=== PATIENT | female | born 1945 | race Caucasian/White ===

== ENCOUNTER → 2017-11-02 15:21 | Outpatient (CLI) | payer MEDICARE, OTHER, SELFPAY ==
--- NOTE | 2017-11-02 15:51 | DI.MG.S_ITS ---
Patient Name: JOANNE SOARES date: 1945 Sex: F Attending Physician: Devin Indications: Date: 11/02/2017 15:41 At the request of: MARGARETTE CARDOSO Procedure: MM screening mammo BI BILATERAL DIGITAL SCREENING MAMMOGRAM 3D/2D WITH CAD: 11/02/2017 CLINICAL: Routine screening. Comparison is made to exams dated: 10/20/2016 mammogram, 09/27/2015 mammogram, and mammogram - [facility]. The tissue of both breasts is heterogeneously dense. This may lower the sensitivity of mammography. Current study was also evaluated with a Computer Aided Detection (CAD) system. There is possible architectural distortion in the left breast upper outer aspect middle depth. No other significant masses, calcifications, or other findings are seen in either breast. IMPRESSION: INCOMPLETE: NEEDS ADDITIONAL IMAGING EVALUATION The possible architectural distortion in the left breast is indeterminate. Additional views with possible ultrasound are recommended. This exam was interpreted at Station ID: [id number]. NOTE: For mammograms, a report in lay terms will be sent to the patient. Approximately 15% of breast malignancies will not be visualized mammographically. In the management of a palpable breast mass, a negative mammogram must not discourage biopsy of a clinically suspicious lesion. Electronically Signed By: Steve Pan M.D. ecl/:11/02/2017 20:53:43 copy to: MARGARETTE CARDOSO letter sent: Additional Imaging Needed ACR BI-RADS Category 0: Incomplete 3340F Continued Report - Page 2 of 2 Patient Name: JOANNE SOARES date: 1945 Sex: F Attending Physician: Devin Indications: Date: 11/02/2017 15:41 At the request of: MARGARETTE CARDOSO Procedure: MM screening mammo BI
== END ==
PROVIDERS: Family Provider Physician Assistant; Visit Provider Physician Assistant
DX: Z12.31 Encounter for screening mammogram for malignant neoplasm of breast (principal)
CPT/HCPCS: 77063; 77067

== ENCOUNTER → 2017-11-16 08:18 | Outpatient (CLI) | payer MEDICARE, OTHER, SELFPAY ==
--- NOTE | 2017-11-16 | DI.MG.S_ITS ---
UNILATERAL LEFT DIGITAL DIAGNOSTIC MAMMOGRAM 3D/2D WITH ADDITIONAL VIEWS: 11/16/2017 CLINICAL: Additional evaluation requested from prior study. Comparison is made to exams dated: 11/02/2017 mammogram, 10/20/2016 mammogram, and 09/27/2015 mammogram - [facility]. The tissue of the left breast is heterogeneously dense. This may lower the sensitivity of mammography. Questioned left breast finding resolves on further imaging. IMPRESSION: INCOMPLETE: NEEDS ADDITIONAL IMAGING EVALUATION Questioned left breast finding resolves on further imaging. Recommend ultrasound for confirmation. This exam was interpreted at Station ID: [id number]. NOTE: For mammograms, a report in lay terms will be sent to the patient. Approximately 15% of breast malignancies will not be visualized mammographically. In the management of a palpable breast mass, a negative mammogram must not discourage biopsy of a clinically suspicious lesion. Electronically Signed By: Glynn Melara M.D. cj/:11/17/2017 08:06:51 ACR BI-RADS Category 0: Incomplete 3340F
--- NOTE | 2017-11-16 | DI.US.S_ITS ---
ULTRASOUND OF LEFT BREAST: 11/16/2017 CLINICAL: Patient returns today to evaluate a focal asymmetry in the left breast. Comparison is made to exams dated: 11/16/2017 mammogram, 11/02/2017 mammogram, and 10/20/2016 mammogram - [facility]. Color flow ultrasound of the left breast was performed. [place]jo scale images of the real-time examination were reviewed. Prior mammographic finding is no longer seen left breast. IMPRESSION: NEGATIVE There is no sonographic evidence of malignancy. A 1 year screening mammogram is recommended. This exam was interpreted at Station ID: [id number]. Electronically Signed By: Glynn barraza/minerva:11/16/2017 13:08:12 letter sent: Normal Exam Ultrasound BI-RADS: 1 Negative
== END ==
PROVIDERS: Family Provider Physician Assistant; Visit Provider Physician Assistant
DX: R92.8 Other abnormal and inconclusive findings on diagnostic imaging of breast (principal)
CPT/HCPCS: 76642; 77065; G0279

== ENCOUNTER → 2018-12-03 11:39 | Outpatient (CLI) | payer MEDICARE, OTHER, SELFPAY ==
--- NOTE | 2018-12-03 | DI.MG.S_ITS ---
BILATERAL DIGITAL SCREENING MAMMOGRAM 3D/2D WITH CAD: 12/03/2018 CLINICAL: Routine screening. Comparison is made to exams dated: 11/16/2017 mammogram, 11/02/2017 mammogram, 10/20/2016 mammogram, 09/27/2015 mammogram, 12/29/2014 mammogram, and 10/05/2013 mammogram - [facility]. The tissue of both breasts is heterogeneously dense. This may lower the sensitivity of mammography. Current study was also evaluated with a Computer Aided Detection (CAD) system. There is a mole marker on the right breast. There are mole markers on the left breast. No significant masses, calcifications, or other findings are seen in either breast. There has been no significant interval change. IMPRESSION: NEGATIVE There is no mammographic evidence of malignancy. A 1 year screening mammogram is recommended. This exam was interpreted at Station ID: [id number]. NOTE: For mammograms, a report in lay terms will be sent to the patient. Approximately 15% of breast malignancies will not be visualized mammographically. In the management of a palpable breast mass, a negative mammogram must not discourage biopsy of a clinically suspicious lesion. Electronically Signed By: Steve mason/minerva:12/03/2018 13:34:55 letter sent: Normal Exam ACR BI-RADS Category 1: Negative 3341F
== END ==
PROVIDERS: Visit Provider Physician Assistant
DX: Z12.31 Encounter for screening mammogram for malignant neoplasm of breast (principal)
CPT/HCPCS: 77063; 77067

== ENCOUNTER → 2020-02-21 14:45 | Outpatient (ROUT) | payer MEDICARE, OTHER, SELFPAY ==
[2020-02-21 16:45] LABS: TSH w/ Reflex to FT4 5.21 uIU/mL (0.47-4.68)
[2020-02-21 17:18] LABS: Free T4, Direct Thyroxine 1.08 ng/dL (0.78-2.19)
== END ==
PROVIDERS: PCP Student in an Organized Health Care Education/Training Program; Visit Provider Student in an Organized Health Care Education/Training Program
DX: E03.9 Hypothyroidism, unspecified (principal)
CPT/HCPCS: 84439; 84443

== ENCOUNTER → 2020-05-01 12:33 | Outpatient (ROUT) | payer MEDICARE, OTHER, SELFPAY ==
[2020-05-01 13:14] LABS: Thyroid Stimulating Hormone 4.66 uIU/mL (0.47-4.68)
== END ==
PROVIDERS: PCP Student in an Organized Health Care Education/Training Program; Visit Provider Student in an Organized Health Care Education/Training Program
DX: E03.9 Hypothyroidism, unspecified (principal)
CPT/HCPCS: 84443

== ENCOUNTER → 2020-05-24 09:17 | Outpatient (CLI) | payer MEDICARE, OTHER, SELFPAY ==
[2020-05-24] MEDS: COVID-19 VACC #1, MRNA(MOD) 100 MCG/0.5 ML VIAL IM (09:21)
== END ==
PROVIDERS: PCP Student in an Organized Health Care Education/Training Program; Visit Provider Internal Medicine
DX: Z23 Encounter for immunization (principal)
CPT/HCPCS: 0011A; 91301

== ENCOUNTER → 2020-06-21 09:18 | Outpatient (CLI) | payer MEDICARE, OTHER, SELFPAY ==
[2020-06-21] MEDS: COVID-19 VACC #2, MRNA(MOD) 100 MCG/0.5 ML VIAL IM (09:21)
== END ==
PROVIDERS: PCP Student in an Organized Health Care Education/Training Program; Visit Provider Internal Medicine
DX: Z23 Encounter for immunization (principal)
CPT/HCPCS: 0012A; 91301

== ENCOUNTER → 2020-08-02 11:12 | Outpatient (CLI) | payer MEDICARE, OTHER, SELFPAY ==
--- NOTE | 2020-08-02 11:19 | DI.MG.S_ITS ---
BILATERAL DIGITAL SCREENING MAMMOGRAM 3D/2D WITH CAD: 08/02/2020 CLINICAL: Routine screening. Comparison is made to exams dated: 12/03/2018 mammogram, 11/02/2017 mammogram, and 10/20/2016 mammogram - [facility]. The tissue of both breasts is heterogeneously dense. This may lower the sensitivity of mammography. Current study was also evaluated with a Computer Aided Detection (CAD) system. No significant masses, calcifications, or other findings are seen in either breast. There has been no significant interval change. IMPRESSION: NEGATIVE There is no mammographic evidence of malignancy. A 1 year screening mammogram is recommended. This exam was interpreted at Station ID: [id number]. NOTE: For mammograms, a report in lay terms will be sent to the patient. Approximately 15% of breast malignancies will not be visualized mammographically. In the management of a palpable breast mass, a negative mammogram must not discourage biopsy of a clinically suspicious lesion. Electronically Signed By: Wilfrido hart/minerva:08/02/2020 12:21:22 letter sent: Normal Exam ACR BI-RADS Category 1: Negative 3341F
== END ==
PROVIDERS: PCP Student in an Organized Health Care Education/Training Program; Referring Provider Student in an Organized Health Care Education/Training Program; Visit Provider Student in an Organized Health Care Education/Training Program
DX: Z12.31 Encounter for screening mammogram for malignant neoplasm of breast (principal)
CPT/HCPCS: 77063; 77067

== ENCOUNTER 2021-02-17 20:22 | Inpatient (IN) | payer MEDICARE, OTHER, SELFPAY ==
[2021-02-17] VITALS (23 sets, daily range): BP systolic 115–174; BP diastolic 61–115; PULSE 50–157; RESP 17–37; TEMP 36.7; O2SAT 96–98
--- NOTE | 2021-02-17 20:33 | DI.RAD.S_ITS ---
PROCEDURE: XR CHEST 1V INDICATIONS: chest pain TECHNIQUE: One view of the chest was acquired. COMPARISON: None. FINDINGS: Surgical changes and devices: None. Lungs and pleura: Mild streaky opacity at the left lung base. No pleural effusions or pneumothorax. Mediastinum: Mediastinal contours appear normal. Heart size is normal. Bones and chest wall: No suspicious bony lesions. Overlying soft tissues appear unremarkable. IMPRESSION: Mild streaky opacity at the left lung base. Favor atelectasis or scarring over pneumonia. Dictated by: Jean-Pierre Love M.D. on 02/17/2021 at 21:08 Approved by: Jean-Pierre Love M.D. on 02/17/2021 at 21:08
[2021-02-17 21:00] LABS: COVID19 -Nasal RAPID Negative (Negative)
[2021-02-17 21:04] LABS: Add Manual Diff / Slide Review NO; Basophils Absolute Auto 100 /uL (0-100); Basophils Percent Auto 0.8 % (0-2); Eosinophils Absolute Auto 200 /uL (0-450); Eosinophils Percent Auto 2.2 % (2-4); Hematocrit 42.1 % (36-46); Lymphocytes Absolute Auto 2800 /uL (1100-4500); Lymphocytes Percent Auto 37.5 % (25-40); Mean Corpuscular HGB Conc 33.2 % (30-36); Mean Corpuscular Hemoglobin 31.5 PG (26-34); Mean Corpuscular Volume 94.7 fL (80-100); Monocytes Absolute Auto 900 /uL (0-900); Monocytes Percent Auto 12.4 % (3-14); Neutrophils Absolute Auto 3500 /uL (1500-7000); Neutrophils Percent Auto 47.1 % (50-75); Platelet Count 304 X10^3/uL (150-400); Red Blood Cell Count 4.44 X10^6/uL (4.0-5.2); Red Cell Distribution Width 12.9 % (11.6-14.8); White Blood Cell Count 7.3 X10^3/uL (4.5-11.0)
[2021-02-17 21:34] LABS: Alanine Aminotransferase 25 IU/L (<35); Albumin 4.1 g/dL (3.5-5.0); Albumin Globulin Ratio 1.4 (1.0-2.8); Alkaline Phosphatase 56 U/L (38-126); Aspartate Aminotransferase 35 IU/L (14-36); BUN Creatinine Ratio 14.3 (6-22); Bilirubin Total 0.5 mg/dL (0.2-1.3); Blood Urea Nitrogen 20 mg/dL (7-17); Calcium 9.3 mg/dL (8.4-10.2); Carbon Dioxide 26 mmol/L (22-32); Chloride 106 mmol/L (98-107); Creatine Kinase 85 U/L (30-135); Estimated Glomerular Filt Rate 36.7 mL/min (>60); Glucose 119 mg/dL (80-110); HEMOLYSIS < 15 (0-50); Lipase 116 U/L (23-300); Potassium 3.9 mmol/L (3.4-5.1); Sodium 140 mmol/L (137-145); Total Protein 7.1 g/dL (6.3-8.2)
[2021-02-17 21:46] LABS: Troponin I < 0.012 ng/mL (0.01-0.034)
--- NOTE | 2021-02-17 21:57 | ED_ITS ---
HPI - Arrhythmia/Palpitations General Chief Complaint: Arrhythmia/Palpitations Stated Complaint: heart racing,blood pressure 150/100, heart rate 90 Time Seen by Provider: 02/17/21 21:57 Source: patient Mode of arrival: Ambulatory History of Present Illness HPI narrative: 75-year-old woman with history of hypertension currently also taking a baby aspirin for uncertain reasons presents with palpitations. She states she was watching TV today when she noted that her heart was going fast. When questioned she notes that she feels slightly dyspneic but nothing that is dramatic. She isn't sure how long this has been present. She does have a Fitbit and notes that her heart rate typically is in the 40-50 range. With the palpitation sensations the fit that was telling her was in the 90 range. In correlating her Fitbit with her current telemetry fit bit is reading at 70 and her heart rate is in the 140 range. She does not think that she has had a history of atrial fibrillation before and describes no evidence of prior heart attack or stroke. She recently had an upper respiratory infection with mild sinus symptoms it lasted only a couple of days. For this she took some [id number] antihistamines and a codeine based cough syrup. She is no longer symptomatic from that. She describes no nausea, vomiting, abdominal pain, diarrhea, lower extremity swelling, orthopnea, headaches or specific areas of weakness. Related Data Home Medications Medication Instructions Recorded Confirmed atorvastatin 10 mg tablet (Lipitor) 10 mg PO DAILY 02/18/21 02/18/21 levothyroxine 25 mcg tablet 25 mcg PO DAILY 02/18/21 02/18/21 lisinopril 10 mg tablet 10 mg PO DAILY 02/18/21 02/18/21 Allergies Allergy/AdvReac Type Severity Reaction Status Date / Time No Known Drug Allergies Allergy Verified 02/18/21 00:21 Review of Systems Review of Systems Narrative: Remainder of complete review of systems is otherwise unremarkable except for that included in the HPI. Patient History Social History household members: spouse Smoking Status: Never smoker Exam Narrative Exam Narrative: General: Healthy appearing, in no acute distress. Able to give a complete and coherent history. Well-nourished well-developed HEENT: Moist mucous membranes, normal sclera with reactive pupils, Neck: No JVD, supple Respiratory: Lungs are clear to auscultation, no wheezing no rales no rhonchi. Full and symmetrical air movement Cardiac: Tachycardic and irregular, no murmurs. Abdomen: Soft, nontender, good bowel tones, no flank pain Skin: Warm and dry, no rashes Neurologic: Grossly neurologically intact with no obvious asymmetries or abnormalities Extremities: No trauma, well perfused, no lower extremity edema Psych: Cooperative, appropriate insight and affect Initial Vital Signs Initial Vital Signs: Vital Signs Pulse Rate 50 L 02/17/21 20:29 Blood Pressure 167/104 H 02/17/21 20:29 Pulse Oximetry 96 02/17/21 20:29 Course Orders Ordered: ED Orders 02/17/21 20:30 COVID19 -Nasal swab/Pre-Proc Stat 02/17/21 20:33 XR chest 1V Stat 02/17/21 20:37 EKG-12 Lead Stat 02/17/21 20:43 Complete Blood Count AUTO DIFF Stat 02/17/21 21:10 Comprehensive Metabolic Panel Stat Lipase Stat Troponin & CK Cardiac Panel Stat 02/18/21 02:07 Education, smoking cessation ONGOING Acetaminophen (Acetaminophen 325 Mg Tablet) 650 mg PO Q6HR PRN PRN Reason: Fever/Mild Pain (1-3) Al Hydrox/Mg Hydrox/Simethicone (Mag Hydrox/Alum/Simeth 30 Ml Udc) 30 ml PO Q6HR PRN PRN Reason: Dyspepsia Enoxaparin Sodium (Enoxaparin 30 Mg/0.3 Ml Syringe) 30 mg SUBCUT DAILY RAJAT Diltiazem HCl 125 mg/ Dextrose 125 mls @ 5 mls/hr IV TITRATE RAJAT; Protocol Last Titration: 02/18/21 02:30 Dose: 0 mg/hr, 0 mls/hr Documented by: Titration: 02/18/21 01:36 Dose: 7.5 mg/hr, 7.5 mls/hr Documented by: Titration: 02/17/21 22:54 Dose: 5 mg/hr, 5 mls/hr Documented by: Titration: 02/17/21 22:43 Dose: 0 mg/hr, 0 mls/hr Documented by: Admin: 02/17/21 22:40 Dose: 5 mg/hr, 5 mls/hr Documented by: MARIBELL Magnesium Hydroxide (Magnesium Hydroxide 30 Ml Udc) 30 ml PO DAILY PRN PRN Reason: Constipation Naloxone HCl (Naloxone 0.4 Mg/Ml Vial) 0.2 mg IV Q2MIN PRN PRN Reason: Opiate Reversal Ondansetron HCl (Ondansetron 4 Mg/2 Ml Inj) 4 mg IV Q8HR PRN PRN Reason: Nausea And Vomiting Sennosides (Sennosides 8.6 Mg Tablet) 17.2 mg PO BEDTIME RAJAT Sodium Chloride (Sodium Chloride 0.9% Flush) 10 ml IV PRN PRN PRN Reason: Flush Sodium Chloride (Sodium Chloride 0.9% Flush) 10 ml IV BID RAJAT Zolpidem Tartrate (Zolpidem 5 Mg Tablet) 5 mg PO BEDTIME PRN PRN Reason: Sleep Discontinued Medications Apixaban (Apixaban 5 Mg Tablet) 5 mg PO NOW ONE Stop: 02/17/21 22:29 Last Admin: 02/17/21 22:42 Dose: 5 mg Documented by: MARIBELL Diltiazem HCl (Diltiazem 5 Mg/Ml Sdv) 20 mg IV NOW ONE Stop: 02/17/21 22:24 Last Admin: 02/17/21 22:42 Dose: 20 mg Documented by: MARIBELL Vital Signs Vital signs: Vital Signs - 8 hr 02/17/21 20:29 02/17/21 20:30 02/17/21 20:32 Temperature 98.0 F Pulse Rate 50 L 148 H 147 H Respiratory Rate 22 Blood Pressure 167/104 H 167/104 H Pulse Oximetry 96 97 97 02/17/21 20:44 02/17/21 21:00 02/17/21 21:30 Temperature Pulse Rate 151 H 146 H 150 H Respiratory Rate 24 26 H 24 Blood Pressure 170/81 H 158/106 H Pulse Oximetry 98 97 97 02/17/21 21:31 02/17/21 21:45 02/17/21 22:00 Temperature Pulse Rate 152 H 145 H 146 H Respiratory Rate 25 H 24 25 H Blood Pressure 174/79 H 158/102 H 139/103 H Pulse Oximetry 97 98 97 02/17/21 22:15 02/17/21 22:30 02/17/21 22:40 Temperature Pulse Rate 146 H 140 H 150 H Respiratory Rate 37 H 30 H Blood Pressure 146/104 H 151/115 H 131/91 H Pulse Oximetry 97 97 02/17/21 22:42 02/17/21 22:50 02/17/21 22:55 Temperature Pulse Rate 152 H 130 H 92 H Respiratory Rate 19 30 H 23 Blood Pressure 131/91 H 115/87 123/77 Pulse Oximetry 98 98 96 02/17/21 23:00 02/17/21 23:05 02/17/21 23:10 Temperature Pulse Rate 81 77 81 Respiratory Rate 27 H 25 H 25 H Blood Pressure 129/74 135/61 132/63 Pulse Oximetry 96 96 97 02/17/21 23:15 02/17/21 23:20 02/17/21 23:25 Temperature Pulse Rate 78 80 74 Respiratory Rate 24 23 22 Blood Pressure 128/74 117/73 118/66 Pulse Oximetry 97 97 96 02/17/21 23:30 02/17/21 23:45 02/18/21 00:00 Temperature Pulse Rate 80 80 83 Respiratory Rate 24 17 24 Blood Pressure 123/74 134/85 139/62 Pulse Oximetry 97 97 98 02/18/21 00:15 02/18/21 00:30 02/18/21 00:45 Temperature Pulse Rate 79 84 80 Respiratory Rate 20 25 H Blood Pressure 122/68 135/65 132/64 Pulse Oximetry 97 98 97 02/18/21 01:14 02/18/21 01:30 02/18/21 01:33 Temperature Pulse Rate 88 81 81 Respiratory Rate Blood Pressure 113/71 Pulse Oximetry 96 97 97 02/18/21 02:10 Temperature Pulse Rate 59 L Respiratory Rate Blood Pressure Pulse Oximetry MDM - Arrhythmia/Palpitations Lab Data Result diagrams: 02/17/21 20:43 02/17/21 21:10 Labs: Lab Results 02/17/21 02/17/21 02/17/21 Range/Units 20:30 20:43 21:10 WBC 7.3 (4.5-11.0) X10^3/uL RBC 4.44 (4.0-5.2) X10^6/uL Hgb 14.0 (12.0-16.0) g/dL Hct 42.1 (36-46) % MCV 94.7 (80-100) fL MCH 31.5 (26-34) PG MCHC 33.2 (30-36) % RDW 12.9 (11.6-14.8) % Plt Count 304 (150-400) X10^3/uL Neut % (Auto) 47.1 L (50-75) % Lymph % (Auto) 37.5 (25-40) % Trinity % (Auto) 12.4 (3-14) % Eos % (Auto) 2.2 (2-4) % Baso % (Auto) 0.8 (0-2) % Neut # (Auto) 3500 (3588-1236) /uL Lymph # (Auto) 2800 (1512-1030) /uL Trinity # (Auto) 900 (0-900) /uL Eos # (Auto) 200 (0-450) /uL Baso # (Auto) 100 (0-100) /uL Sodium 140 (137-145) mmol/L Potassium 3.9 (3.4-5.1) mmol/L Chloride 106 (98-107) mmol/L Carbon Dioxide 26 (22-32) mmol/L BUN 20 H (7-17) mg/dL Creatinine 1.40 H (0.52-1.04) mg/dL Estimated GFR 36.7 L (>60) mL/min BUN/Creatinine Ratio 14.3 (6-22) Glucose 119 H (80-110) mg/dL Calcium 9.3 (8.4-10.2) mg/dL Magnesium (1.6-2.3) mg/dL Total Bilirubin 0.5 (0.2-1.3) mg/dL AST 35 (14-36) IU/L ALT 25 (<35) IU/L Alkaline Phosphatase 56 (38-126) U/L Total Creatine Kinase 85 (30-135) U/L CK-MB (CK-2) TNP CK-MB (CK-2) Rel Index TNP Troponin I < 0.012 (0.01-0.034) ng/mL Total Protein 7.1 (6.3-8.2) g/dL Albumin 4.1 (3.5-5.0) g/dL Globulin 3.0 (1.7-4.1) g/dL Albumin/Globulin Ratio 1.4 (1.0-2.8) Lipase 116 (23-300) U/L SARS-CoV-2 (PCR) Negative (Negative) 02/17/21 Range/Units 21:10 WBC (4.5-11.0) X10^3/uL RBC (4.0-5.2) X10^6/uL Hgb (12.0-16.0) g/dL Hct (36-46) % MCV (80-100) fL MCH (26-34) PG MCHC (30-36) % RDW (11.6-14.8) % Plt Count (150-400) X10^3/uL Neut % (Auto) (50-75) % Lymph % (Auto) (25-40) % Trinity % (Auto) (3-14) % Eos % (Auto) (2-4) % Baso % (Auto) (0-2) % Neut # (Auto) (5807-0467) /uL Lymph # (Auto) (5718-2038) /uL Trinity # (Auto) (0-900) /uL Eos # (Auto) (0-450) /uL Baso # (Auto) (0-100) /uL Sodium (137-145) mmol/L Potassium (3.4-5.1) mmol/L Chloride (98-107) mmol/L Carbon Dioxide (22-32) mmol/L BUN (7-17) mg/dL Creatinine (0.52-1.04) mg/dL Estimated GFR (>60) mL/min BUN/Creatinine Ratio (6-22) Glucose (80-110) mg/dL Calcium (8.4-10.2) mg/dL Magnesium 2.3 (1.6-2.3) mg/dL Total Bilirubin (0.2-1.3) mg/dL AST (14-36) IU/L ALT (<35) IU/L Alkaline Phosphatase (38-126) U/L Total Creatine Kinase (30-135) U/L CK-MB (CK-2) CK-MB (CK-2) Rel Index Troponin I (0.01-0.034) ng/mL Total Protein (6.3-8.2) g/dL Albumin (3.5-5.0) g/dL Globulin (1.7-4.1) g/dL Albumin/Globulin Ratio (1.0-2.8) Lipase (23-300) U/L SARS-CoV-2 (PCR) (Negative) Urine Dip Bedside Urine Glucose Negative Bedside Urine Bilirubin - Negative Bedside Urine Ketone - Negative Urine Specific [place] 1.015 Bedside Urine Occult Blood - Negative Bedside Urine pH 6.0 Bedside Urine Protein - Negative Bedside Urine Urobilinogen - Negative Bedside Urine Nitrite - Negative Bedside Urine Leukocytes - Negative Esterase Imaging Data Chest x-ray: Radiologist's Impresson: INDINGS:? ? Surgical changes and devices:? None.? ? Lungs and pleura:? Mild streaky opacity at the left lung base.? No pleural effusions or pneumothorax.? ? Mediastinum:? Mediastinal contours appear normal.? Heart size is normal.? ? Bones and chest wall:? No suspicious bony lesions.? Overlying soft tissues appear unremarkable.? ? IMPRESSION:? Mild streaky opacity at the left lung base.? Favor atelectasis or scarring over pneumonia. ? ? Dictated by: Jean-Pierre Love M.D. on 02/17/2021 at 21:08 ? ? ECG Data Interpretation: Atrial fibrillation at a rate of 141 No acute ischemic changes MDM Narrative Medical decision making narrative: 75-year-old woman presents with atrial fibrillation, mild palpitations that she noted at rest however is otherwise minimally symptomatic. It is unclear how long she has been in this rhythm. Labs suggest mild renal insufficiency with a jump in creatinine from 1-1.4. No evidence of acute coronary syndrome or congestive heart failure. At this time minimally symptomatic it is unclear how long she has been in atrial fibrillation currently it is rapid and she is mildly short of breath. Will give her a dose of Eliquis and will start her on diltiazem to control the rate and anticipate hospital admission for 1st episode atrial fibrillation uncertain initial duration. With additional time in the emergency department her rate did come down into the mid 80s with blood pressure maintained. She continued in atrial fibrillation. She is transferred to the floor in stable condition with Cardizem drip still in place. Discharge Plan Departure Patient Disposition: Admitted As Inpatient Clinical Impression: Atrial fibrillation with rapid ventricular response Admit Date/Time: 02/18/21 02:12 Admit Provider: Eryn Lee
[2021-02-17] MEDS: dilTIAZem 125 MG in DEXTROSE 5 % IN WATER 100 ML IV (22:40)
[2021-02-17] MEDS: dilTIAZem 5 MG/ML SDV 20 MG IV (22:42)
[2021-02-17] MEDS: APIXABAN 5 MG TABLET PO (22:42)
[2021-02-18] VITALS (15 sets, daily range): BP systolic 97–148; BP diastolic 56–71; PULSE 49–88; RESP 20–26; TEMP 36.7–37.2; O2SAT 94–98; BMI 24.3
--- NOTE | 2021-02-18 02:38 | DI.ECHO.S_ITS ---
[place] [facility]---------+ [facility] +---------+ : : [address] : [address] : : : : [id number] : : : : Phone: [phone]+ Echocardiogram Report + + :Name: JOANNE SOARES Study Date: 02/18/2021 Height: 61 in : :[facility] ReadingLocation: Weight: 130 lb : : Gender: Female BSA: 1.6 m2 : :: 1945 Age: 75 yrs BP: 144/67 mmHg: :Reason For Study: ATRIAL FIBRILLATION : :Ordering Physician: JOSIAS, : :BHAVANA Performed By: Carly Butler : :Referring: BHAVANA FERRARA : + + Interpretation Summary Normal left ventricle size with ejection fraction 60-65%. Severely dilated both atria. Mild aortic valve sclerosis. Moderate aortic regurgitation. Mild mitral annular calcification. Mild to moderate mitral regurgitation. Mild tricuspid regurgitation. Procedure: A two-dimensional transthoracic echocardiogram with color flow and Doppler was performed. The study quality was technically adequate. The patient had an echocardiogram, but there is no comparison study available. The patient was in sinus rhythm with heart rates between 48-55 bpm during the exam. Left Ventricle: The left ventricle is normal in size and wall thickness. The ejection fraction is estimated to be 60-65%. There are no focal wall motion abnormalities. Diastolic parameters suggest probable normal left ventricular diastolic function and normal filling pressures. Right Ventricle: The right ventricle is normal in size and function. Atria: Both atria are severely dilated. There is no Doppler evidence for an interatrial shunt. Mitral Valve: The mitral valve is normal in structure and function. There is mild mitral annular calcification. There is mild to moderate mitral regurgitation. Aortic Valve: The aortic valve is trileaflet. The aortic valve opens well. There is mild aortic valve sclerosis. There is no aortic valve stenosis. There is moderate aortic regurgitation. Tricuspid Valve: The tricuspid valve is normal in structure and function. There is mild tricuspid regurgitation. The right ventricular systolic pressure is estimated to be at least 27 mmHg based on an estimated right atrial pressure of 3 mm Hg. Pulmonic Valve: The pulmonic valve is not well seen, but is grossly normal. There is no pulmonic valvular regurgitation. Great Vessels: The aortic root is normal size. The ascending aorta is at the upper limits of normal in size. The IVC is of normal diameter and collapses greater than 50% with a sniff. This suggests a low right atrial pressure of 3 mm Hg. Pericardium/ Pleura There is no pericardial effusion. There is no pleural effusion. MMode/2D Measurements & Calculations LVIDd: 4.8 cm LVOT diam: 2.0 cm LVIDs: 3.0 cm Ao root diam: 3.1 cm FS: 36.6 % asc Aorta Diam: 3.4 cm IVSd: 0.66 cm Ao Arch Diam (Prox Trans): 2.6 cm LVPWd: 0.61 cm LV fraser. diameter/BSA (cm/m^2): 3.0 LV sys. diameter/BSA (cm/m^2): 1.9 LA A2 area: 22.4 cm2 RA long axis: 5.9 cm LA A4 area: 23.7 cm2 RA area: 24.2 cm2 LA length (vol): 5.6 cm RA vol: 85.1 ml LA vol: 80.3 ml RA : 54.1 ml/m2 LA vol index: 51.1 ml/m2 IVC diam: 1.9 cm RVD1 (basal): 3.5 cm TAPSE: 2.7 cm Doppler Measurements & Calculations Ao V2 max: 174.1 cm/sec LVOT Max Selwyn: 134.8 cm/sec Ao V2 mean: 97.5 cm/sec LV V1 max P.3 mmHg Ao max P.1 mmHg LV V1 VTI: 31.1 cm Ao mean P.7 mmHg KEENA(I,D): 2.6 cm2 Ao V2 VTI: 36.0 cm KEENA(V,D): 2.4 cm2 sev ratio: 0.86 KEENA indexed to BSA (cm^2/m^2): 1.7 AI P1/2t: 724.2 msec AI dec slope: 198.8 cm/sec2 MV E max selwyn: 72.8 cm/sec TR max selwyn: 242.8 cm/sec MV A max selwyn: 59.3 cm/sec TR max P.6 mmHg MV E/A: 1.2 PA V2 max: 85.8 cm/sec Med Peak E' Selwyn: 5.5 cm/sec PA V2 mean: 54.8 cm/sec E/E' med: 13.2 PA mean P.4 mmHg Lat Peak E' Selwyn: 9.2 cm/sec PA pr(Accel): 36.2 mmHg E/E' lat: 7.9 E/e' average: 10.6 MV dec time: 0.30 sec SV(LVOT): 94.6 ml Electronically signed by: Sylvia Joel on Reading Physician:02/18/2021 11:50 AM
[2021-02-18 02:53] LABS: Magnesium 2.3 mg/dL (1.6-2.3)
[2021-02-18] MEDS: ZOLPIDEM 5 MG TABLET PO (03:39)
[2021-02-18 05:09] LABS: INR 1.3 (0.9-1.3)
[2021-02-18 05:12] LABS: PTT Partial Thromboplastin Tim 37 SECONDS (26.4-36.2)
--- NOTE | 2021-02-18 05:13 | PM.HP.1 ---
History of Present Illness History of Present Illness Date Patient Seen: 02/18/21 Time Patient Seen: 02:40 Chief complaint: heart racing,blood pressure 150/100, heart rate 90 Narrative: Crys Terrazas is a 75-year-old female with a history of hypertension, hypothyroidism, hyperlipidemia, and insomnia who presented yesterday complaining of palpitations. Patient was found to be in atrial fibrillation with RVR in the ED. Patient was given a push of Cardizem initially which did not resolve her atrial fibrillation with RVR was then paced on a Cardizem drip. She does not think that she has had a history of atrial fibrillation before and describes no evidence of prior heart attack or stroke. She recently had an upper respiratory infection with mild sinus symptoms it lasted only a couple of days, and her symptoms have since resolved. For this she took some [id number] antihistamines and a codeine based cough syrup. Upon admit to the floor soon after arriving she converted to sinus rhythm. She currently denies Chest pain, SOB, nausea, vomiting, abdominal pain, diarrhea, lower extremity swelling, orthopnea, headaches, changes in vision, new weakness, numbness, tingling, recent changes in her medication, balance or coordination issues, any other recent illness injuries or trauma. Patient is quite a feisty delightful elderly female who is resting comfortably in bed in no distress at this time and is stable in a sinus bradycardic rhythm. Patient's admitting vitals temp 98?, BP 113/71, HR 81, R 25, O2 saturation 97% on room air. Patient's CBC is normal, patient CMP demonstrates mild SARAHI of unknown etiology with a BUN of 20, creatinine 1.40, glucose 119, GFR 36.7. Patient's initial lipase and troponin were both normal. Patient's chest x-ray demonstrated mild streaky opacity at left lung base. Patient admitted with new onset atrial fibrillation with RVR and SARAHI. Patient History Medical History Essential hypertension History of benign parathyroid tumor Hyperlipidemia Hypothyroidism Insomnia Surgical History History of hysterectomy Family & Social History Family History (Updated 02/18/21 @ 05:25 by TEJAL Plummer) Mother Stroke Lupus Father Heart attack Social History: household members spouse, 52 years Prior Living Arrangements House Safety & Behavioral: Feels Safe in Current Yes Environment Been Physically Hurt or No Threatened By a Person Suicidal Ideation Description None Suicide Plan Description No Plan Tobacco & Substance use: Smoking Status Never smoker alcohol intake frequency 1 glass of wine w/dinner Substance Use Type does not use Meds Home Medications and Allergies Home Medications Medication Instructions Recorded Confirmed Type atorvastatin 10 mg tablet (Lipitor) 10 mg PO DAILY 02/18/21 02/18/21 History levothyroxine 25 mcg tablet 25 mcg PO DAILY 02/18/21 02/18/21 History lisinopril 10 mg tablet 10 mg PO DAILY 02/18/21 02/18/21 History Allergies Allergy/AdvReac Type Severity Reaction Status Date / Time No Known Drug Allergies Allergy Verified 02/18/21 00:21 Review of Systems Review of Systems Narrative: All 12 point systems reviewed with the patient and are negative except otherwise documented. Exam Vital Signs (past 8 hours): - 02/17/21 21:30 02/17/21 21:31 02/17/21 21:45 Temperature Pulse Rate 150 H 152 H 145 H Respiratory Rate 24 25 H 24 Blood Pressure 174/79 H 158/102 H Pulse Oximetry 97 97 98 02/17/21 22:00 02/17/21 22:15 02/17/21 22:30 Temperature Pulse Rate 146 H 146 H 140 H Respiratory Rate 25 H 37 H 30 H Blood Pressure 139/103 H 146/104 H 151/115 H Pulse Oximetry 97 97 97 02/17/21 22:40 02/17/21 22:42 02/17/21 22:50 Temperature Pulse Rate 150 H 152 H 130 H Respiratory Rate 19 30 H Blood Pressure 131/91 H 131/91 H 115/87 Pulse Oximetry 98 98 02/17/21 22:55 02/17/21 23:00 02/17/21 23:05 Temperature Pulse Rate 92 H 81 77 Respiratory Rate 23 27 H 25 H Blood Pressure 123/77 129/74 135/61 Pulse Oximetry 96 96 96 02/17/21 23:10 02/17/21 23:15 02/17/21 23:20 Temperature Pulse Rate 81 78 80 Respiratory Rate 25 H 24 23 Blood Pressure 132/63 128/74 117/73 Pulse Oximetry 97 97 97 02/17/21 23:25 02/17/21 23:30 02/17/21 23:45 Temperature Pulse Rate 74 80 80 Respiratory Rate 22 24 17 Blood Pressure 118/66 123/74 134/85 Pulse Oximetry 96 97 97 02/18/21 00:00 02/18/21 00:15 02/18/21 00:30 Temperature Pulse Rate 83 79 84 Respiratory Rate 24 20 25 H Blood Pressure 139/62 122/68 135/65 Pulse Oximetry 98 97 98 02/18/21 00:45 02/18/21 01:14 02/18/21 01:30 Temperature Pulse Rate 80 88 81 Respiratory Rate Blood Pressure 132/64 Pulse Oximetry 97 96 97 02/18/21 01:33 02/18/21 02:10 02/18/21 02:22 Temperature 98.1 F Pulse Rate 81 59 L 55 L Respiratory Rate 26 H Blood Pressure 113/71 144/67 H Pulse Oximetry 97 98 02/18/21 02:45 02/18/21 04:00 Temperature Pulse Rate 49 L Respiratory Rate 24 Blood Pressure 97/56 L Pulse Oximetry 98 94 Oxygen Delivery Method Room Air Oxygen Flow Rate 0 Narrative Exam Narrative: General: Patient is a fiesty delightful elderly female small framed, thin well-developed, well-nourished in no distress at this time. HEENT: Normocephalic, atraumatic, extraocular muscles intact, oral pharynx is clear and mucous membranes are moist. Neck is supple and symmetric, trachea is midline, no adenopathy, no thyroid enlargement, nontender, no masses palpated. Negative for JVD Chest: Normal AP diameter and contour without kyphoscoliosis, no nasal flaring, retractions, or tachypneic labored Lungs: Auscultation of all lung thomas are clear without adventitious sounds, wheezes, rhonchi, or rales. Cardio: S1 & S2 with regular rate and rhythm with positive murmur heard over left 5th intercostal margin clicking without rubs, or gallops, no carotid bruit, no cardiac pulsations present. Abdomen: Soft nontender, negative for organomegaly, or masses. Bowel sounds are present in all 4 quadrants without guarding or rebound, no CVA tenderness. Musculoskeletal: Muscle strength and tone are equal within normal limits, no deformity, crepitus, effusions, cyanosis, clubbing or edema present. Full range of motion intact radial and pedal pulses are normal. Skin: Warm dry and intact without rashes, ulcerations or petechiae. Neuro: Alert and orientated x3, strength is +5/5 in all extremities, sensation to touch intact, no gross deficits noted of cranial nerves. Psych: Patient has a well-kept appearance, appropriate affect, mental status attitude thought context and judgment are appropriate for age. Objective Labs Result Diagrams: 02/17/21 20:43 02/17/21 21:10 Labs: Laboratory Results - last 24 hr 02/17/21 02/17/21 02/17/21 20:30 20:43 21:10 WBC 7.3 RBC 4.44 Hgb 14.0 Hct 42.1 MCV 94.7 MCH 31.5 MCHC 33.2 RDW 12.9 Plt Count 304 Neut % (Auto) 47.1 L Lymph % (Auto) 37.5 Sterling % (Auto) 12.4 Eos % (Auto) 2.2 Baso % (Auto) 0.8 Neut # (Auto) 3500 Lymph # (Auto) 2800 Sterling # (Auto) 900 Eos # (Auto) 200 Baso # (Auto) 100 Sodium 140 Potassium 3.9 Chloride 106 Carbon Dioxide 26 BUN 20 H Creatinine 1.40 H Estimated GFR 36.7 L BUN/Creatinine Ratio 14.3 Glucose 119 H Calcium 9.3 Magnesium Total Bilirubin 0.5 AST 35 ALT 25 Alkaline Phosphatase 56 Total Creatine Kinase 85 CK-MB (CK-2) TNP CK-MB (CK-2) Rel Index TNP Troponin I < 0.012 Total Protein 7.1 Albumin 4.1 Globulin 3.0 Albumin/Globulin Ratio 1.4 Lipase 116 SARS-CoV-2 (PCR) Negative 02/17/21 21:10 WBC RBC Hgb Hct MCV MCH MCHC RDW Plt Count Neut % (Auto) Lymph % (Auto) Sterling % (Auto) Eos % (Auto) Baso % (Auto) Neut # (Auto) Lymph # (Auto) Sterling # (Auto) Eos # (Auto) Baso # (Auto) Sodium Potassium Chloride Carbon Dioxide BUN Creatinine Estimated GFR BUN/Creatinine Ratio Glucose Calcium Magnesium 2.3 Total Bilirubin AST ALT Alkaline Phosphatase Total Creatine Kinase CK-MB (CK-2) CK-MB (CK-2) Rel Index Troponin I Total Protein Albumin Globulin Albumin/Globulin Ratio Lipase SARS-CoV-2 (PCR) Assessment & Plan Assessment & Plan narrative: Crys Terrazas is a 75-year-old female with a history of hypertension, hypothyroidism, hyperlipidemia, and insomnia who presented yesterday complaining of palpitations. Patient was found to be in atrial fibrillation with RVR in the ED. Patient was admitted to the ICU on a Cardizem drip but quickly converted to sinus bradycardia on the unit. Patient admitted with atrial fibrillation with RVR and SARAHI of unknown etiology. 1. Acute onset atrial fibrillation with RVR, in the setting of essential hypertension, acute on chronic, present on admission -patient initially placed on Cardizem drip following failure of Cardizem push, patient cardioverted approximately 0245 a.m. -patient will be continued to be monitored on tele in the ICU -patient normally takes lisinopril 10 mg, patient has a chronic history of sinus bradycardia so extreme caution should be considered in the use of beta-lidia for rate control. -echo ordered for tomorrow -troponins to be trended 2. SARAHI of unknown etiology, acute, present on admission -creatinine bump 1.40 from 1.0, GFR 36.7 down from >60 -MRSA, respiratory panel, UA-pending -LR at 150 cc/HR x5 hours for hydration -may be secondary to decreased perfusion 3. Hypothyroidism, acquired, chronic, present on admission -TSH with T4 ordered Continue patient's levothyroxine 4. Hyperlipidemia, Chronic, present on admission -continue patient's Lipitor 5. Insomnia, acute on chronic, present on admission -continue patient's Ambien Code status:DNR Surrogate decision maker: Spouse Arturo Terrazas COVID PCR:Negative COVID vaccination: Moderna 2020, flu 2020 DVT/VTE prophylaxis: Lovenox 30 mg and SCDs Disposition: Patient admitted to the ICU estimated length of stay less than 2 midnights want atrial fibrillation cardioverted, patient also to receive rehydration to resolve SARAHI. I have utilized all available immediate resources to obtain, update, or review the patient's current medications. I confirmed that the patient's advanced care plan is present, Code status is documented and/or surrogate decision maker is listed in the patient's medical record. Time Spent With Patient Critical Care time: I spent a total of [] minutes of critical care time on this patient's care today; this time is exclusive of procedural time. Quality VTE Deep Vein Thrombosis/Pulmonary Embolism Present on Admission: No
[2021-02-18 05:19] LABS: Alanine Aminotransferase 22 IU/L (<35); Albumin 3.7 g/dL (3.5-5.0); Albumin Globulin Ratio 1.4 (1.0-2.8); Alkaline Phosphatase 49 U/L (38-126); Aspartate Aminotransferase 27 IU/L (14-36); Bilirubin Total 0.7 mg/dL (0.2-1.3); Blood Urea Nitrogen 20 mg/dL (7-17); Calcium 8.9 mg/dL (8.4-10.2); Carbon Dioxide 24 mmol/L (22-32); Chloride 107 mmol/L (98-107); Cholesterol 150 mg/dL (140-199); Estimated Glomerular Filt Rate 51.1 mL/min (>60); Globulin 2.6 g/dL (1.7-4.1); Glucose 136 mg/dL (80-110); HDL Cholesterol 54 mg/dL (40-60); HEMOLYSIS < 15 (0-50); LDL Cholesterol Calculated 86 mg/dL (<100); Potassium 4.1 mmol/L (3.4-5.1); Sodium 137 mmol/L (137-145); Total Protein 6.3 g/dL (6.3-8.2); Triglycerides 49 mg/dL (35-150)
[2021-02-18 05:28] LABS: NT-proBNP (BNP-Adult 18+) 586 pg/mL (<450); Troponin I 0.015 ng/mL (0.01-0.034)
[2021-02-18 05:35] LABS: Free T4, Direct Thyroxine 1.32 ng/dL (0.78-2.19)
[2021-02-18 05:49] LABS: Thyroid Stimulating Hormone 2.97 uIU/mL (0.47-4.68)
[2021-02-18] MEDS: SODIUM CHLORIDE 0.9% FLUSH 10 ML IV ×2 (06:09→09:46)
[2021-02-18] MEDS: LACTATED RINGERS 1,000 ML 150 ML IV (06:09)
[2021-02-18 06:35] LABS: Bacteria Urine None Seen; RBC Urine None Seen (0-5/HPF); WBC Urine None Seen (0-5/HPF)
[2021-02-18 06:36] LABS: Culture Indicated Urine Cult Not Indicated; Urine Comments Microscopic Normal
--- NOTE | 2021-02-18 07:16 | PC.ADMIT ---
[email or web address] Admission Note: The patient,Crys Terrazas,75 y/o, was given written information regarding hospital policies, unit procedures and contact persons. Patient's smoking status: Never smoker. Vital Signs - 8 hr 02/17/21 23:20 02/17/21 23:25 02/17/21 23:30 Temperature Pulse Rate 80 74 80 Respiratory Rate 23 22 24 Blood Pressure 117/73 118/66 123/74 Pulse Oximetry 97 96 97 02/17/21 23:45 02/18/21 00:00 02/18/21 00:15 Temperature Pulse Rate 80 83 79 Respiratory Rate 17 24 20 Blood Pressure 134/85 139/62 122/68 Pulse Oximetry 97 98 97 02/18/21 00:30 02/18/21 00:45 02/18/21 01:14 Temperature Pulse Rate 84 80 88 Respiratory Rate 25 H Blood Pressure 135/65 132/64 Pulse Oximetry 98 97 96 02/18/21 01:30 02/18/21 01:33 02/18/21 02:10 Temperature Pulse Rate 81 81 59 L Respiratory Rate Blood Pressure 113/71 Pulse Oximetry 97 97 02/18/21 02:22 02/18/21 02:45 02/18/21 04:00 Temperature 98.1 F Pulse Rate 55 L 49 L Respiratory Rate 26 H 24 Blood Pressure 144/67 H 97/56 L Pulse Oximetry 98 98 94 02/18/21 06:28 Temperature Pulse Rate Respiratory Rate Blood Pressure Pulse Oximetry 97 Patient admitted to ICU room 229 at 0230, A/Ox4, ambulated to BR without difficulty, when back to bed, SR/SB on monitor, rate 50s at rest, Diltiazem gtt at 7.5mg/hr stopped. 5mg Ambien given after assessment done. LR @ 150ml/hr started in am per order.
[2021-02-18] MEDS: APIXABAN 5 MG TABLET PO (09:44)
[2021-02-18] MEDS: ATORVASTATIN 20 MG TABLET 10 MG PO (09:45)
[2021-02-18] MEDS: lisinopriL 10 MG TABLET PO (09:45)
[2021-02-18] MEDS: LEVOTHYROXINE 25 MCG TABLET PO (09:46)
--- NOTE | 2021-02-18 10:07 | P.DS_ITS ---
History of Present Illness History of Present Illness Chief complaint: heart racing,blood pressure 150/100, heart rate 90 Narrative: Agapito Lee: Crsy Terrazas is a 75-year-old female with a history of hypertension, hypothyroidism, hyperlipidemia, and insomnia who presented yesterday complaining of palpitations. Patient was found to be in atrial fibrillation with RVR in the ED. Patient was given a push of Cardizem initially which did not resolve her atrial fibrillation with RVR was then paced on a Cardizem drip. She does not think that she has had a history of atrial fibrillation before and describes no evidence of prior heart attack or stroke. She recently had an upper respiratory infection with mild sinus symptoms it lasted only a couple of days, and her symptoms have since resolved. For this she took some [id number] antihistamines and a codeine based cough syrup. Upon admit to the floor soon after arriving she converted to sinus rhythm. She currently denies Chest pain, SOB, nausea, vomiting, abdominal pain, diarrhea, lower extremity swelling, orthopnea, headaches, changes in vision, new weakness, numbness, tingling, recent changes in her medication, balance or coordination issues, any other recent illness injuries or trauma. Patient is quite a feisty delightful elderly female who is resting comfortably in bed in no distress at this time and is stable in a sinus bradycardic rhythm. Patient's admitting vitals temp 98?, BP 113/71, HR 81, R 25, O2 saturation 97% on room air. Patient's CBC is normal, patient CMP demonstrates mild SARAHI of unknown etiology with a BUN of 20, creatinine 1.40, glucose 119, GFR 36.7. Patient's initial lipase and troponin were both normal. Patient's chest x-ray demonstrated mild streaky opacity at left lung base. Patient admitted with new onset atrial fibrillation with RVR and SARAHI. Discharge Providers Provider Date of admission: 02/18/21 02:12 Discharge Date: 02/18/21 Primary care physician: Gaby Rojas PA-C Discharge provider: Julio Cesar Callejas MD Summary Hospital Course Discharge Diagnosis: 1. Paroxysmal atrial fibrillation with RVR 2. SARAHI 3. Hypothyroidism 4. Hyperlipidemia 5. Insomnia, chronic Hospital Course: Ms. Terrazas came in to the hospital with palpitations and was found to be newly in atrial fibrillation with a rapid rate. She converted back to sinus after being started on cardizem. Her ECHO showed dilated atria, but no other acute process. She initially had mild SARAHI with creatinine of 1.4, but this improved to 1.05 with IV fluid. She was started on eliquis. She had no evidence of infection. She had a normal TSH. Once she converted back to sinus rhythm she was then bradycardic and was not given further rate control medications. Due to her tachycardia and bradycardia she was referred to cardiology, she was advised that she may have return of her atrial fibrillation and if her rate in the future is difficult to control may need a pacemaker. Exam Vital Signs (past 8 hours): Oxygen Delivery Method Room Air Oxygen Flow Rate 0 Narrative Exam Narrative: General: no acute distress Lungs: clear bilaterally Cardio: regular rhythm, bradycardic, no murmurs Abdomen: Soft nontender, negative for organomegaly Neuro: Alert and orientated x3, strength is +5/5 in all extremities, sensation to touch intact Objective Labs Result Diagrams: 02/17/21 20:43 02/18/21 04:45 [facility] Medical History Essential hypertension History of benign parathyroid tumor Hyperlipidemia Hypothyroidism Insomnia Surgical History History of hysterectomy Family History (Updated 02/18/21 @ 05:26 by TEJAL Plummer) Mother Stroke Lupus Father Heart attack Social History household members: spouse Smoking Status: Never smoker Discharge Plan Discharge Plan Patient Disposition: Home Provider Discharge Comment: Ms. Terrazas came in to the hospital with fast heart rate, in a heart rhythm called atrial fibrillation. She went back to a normal heart rhythm, and then her heart rate was slow. She was started on a blood thinner to lower the chance of a stroke. She should follow up with her primary care doctor in one week. She is referred to cardiology. Discharge orders & Medications Prescriptions: New Eliquis 5 mg Tablet 5 mg PO BID Qty: 60 RF: 0 Continued atorvastatin [Lipitor] 10 mg Tablet 10 mg PO DAILY RF: 0 levothyroxine 25 mcg Tablet 25 mcg PO DAILY RF: 0 lisinopril 10 mg Tablet 10 mg PO DAILY RF: 0 Follow up/Referrals: Gaby Rojas PA-C [Primary Care Provider] - Lisa Graham MD [Physician] - (sinus bradycardia, new diagnosis of afib rvr paroxysmal) Diet/Activity/Treatments Diet: Regular Visit Report/Discharge Packet Instructions: DI for Atrial Fibrillation Discharge Data Primary Care Provider: Gaby Rojas Quality VTE Deep Vein Thrombosis/Pulmonary Embolism Present on Admission: No MIPS - DC The patient has current or prior documentation of left ventricular ejection fraction (LVEF) less than 40%, or moderate or severely depressed left ventricular systolic function.: No
--- NOTE | 2021-02-18 11:54 | PC.NURSE ---
Addendum entered by Isac Knowles R.N. 02/18/21 14:05: Discharge instructions and home care handout reviewed with patient. She states understanding and has no further questions or concerns at this time. IV dc'd intact. Patient states she will call her PCP and cardiology to set up follow up appointments. Prescriptions sent electronically to [facility], patient states her will moss picker today. Patient declined wheelchair out, so escorted out with SB assistance to be discharged to home with her . Original Note: Patient without complaint today. Standby assist to bathroom, she denies dizziness, lightheadedness, falls or weakness. Denies palpitations, chest pain and shortness of breath. Eager for discharge to home today, pending ECHO results. Call light within reach, continue to monitor.
--- NOTE | 2021-02-18 15:26 | CM.DANOTE ---
DCP/Assessment: Reviewed chart. Patient is a 75yr old female admitted to [facility] with elevated BP/AFIB. PCP listed is Gaby Rojas. Primary payor is 1)Medicare 2)LYN Martinez. Attempted to meet with patient this afternoon. Patient had already d/c'd from [facility] without any d/c planning needs. P: Home today. [facility] Discharge Planning/Care Management CM Discharge Assessment Start: 02/18/21 15:22 Freq: Status: Discharge Protocol: Document 02/18/21 15:22 K[facility] (Rec: 02/18/21 15:26 [facility] [id number]) Discharge Planning Assessment Assigned Third Rigger JEANNE Breen Contact Information Arturo Terrazas (spouse) ph# Advance Directives? Yes Advance Directives on File No History Provided By Medical Record Prior Living Arrangements House Household Members spouse Independent with ADL's Yes: Per nursing Is patient alert and oriented? Yes: Per nursing Caregiver for Another No Barriers to Discharge No Discharge Plan Home Transportation Arrangement Family to provide transport. Referrals Initiated None needed Whiteboard Updated in Patient Room with No name and ext. # of Third Rigger Review Status In Process Next Review Type Continued Stay Review
== END 2021-02-18 14:10 | disposition home or self-care (01) | DRG 309 ==
LOC: ED 02-18 00:53 → ICU 02-18 02:13
PROVIDERS: Admitting Provider Nurse Practitioner Family; Emergency Provider Emergency Medicine; PCP Student in an Organized Health Care Education/Training Program; Referring Provider Emergency Medicine; Visit Provider Nurse Practitioner Family
DX: I48.91 Unspecified atrial fibrillation (principal); N17.9 Acute kidney failure, unspecified; E03.9 Hypothyroidism, unspecified; E78.5 Hyperlipidemia, unspecified; G47.00 Insomnia, unspecified; Z66 Do not resuscitate; R00.1 Bradycardia, unspecified; I10 Essential (primary) hypertension; Z20.822 Contact with and (suspected) exposure to COVID-19
CPT/HCPCS: 36415; 71045; 80053; 80061; 81003; 81015; 82550; 83690; 83735; 83880; 84439; 84443; 84484; 85025; 85610; 85730; 87635; 87797; 93005; 93306; 96365; 96366; 96375; 99284; 99285; C9803

== ENCOUNTER 2021-04-23 12:36 | Emergency (ER) | payer MEDICARE, OTHER, SELFPAY ==
[2021-02-18 02:45] VITALS: BMI 24.3
[2021-04-23] VITALS (11 sets, daily range): BP systolic 157–191; BP diastolic 52–94; PULSE 46–58; RESP 14–39; TEMP 36.2; O2SAT 97–100; BMI 24.3
--- NOTE | 2021-04-23 13:03 | DI.RAD.S_ITS ---
PROCEDURE: XR CHEST 1V INDICATIONS: chest pain TECHNIQUE: One view of the chest was acquired. COMPARISON: [facility], CR, XR CHEST 1V, 02/17/2021, 20:40. FINDINGS: Surgical changes and devices: None. Lungs and pleura: Persistent streaky/linear opacity of the left lung base. No new focal consolidations or acute airspace disease identified. No pneumothorax or pleural effusion. Mediastinum: Mediastinal contours appear normal. Heart size is normal. Bones and chest wall: No suspicious bony lesions. Overlying soft tissues appear unremarkable. IMPRESSION: Persistent, stable appearance of streaky opacity of the left lung base which is again favored to represent atelectasis/scarring over pneumonia. Otherwise, no acute cardiopulmonary abnormalities identified. Dictated by: Johnson Last M.D. on 04/23/2021 at 13:53 Approved by: Johnson Last M.D. on 04/23/2021 at 13:55
[2021-04-23 13:33] LABS: Add Manual Diff / Slide Review NO; Basophils Absolute Auto 100 /uL (0-100); Basophils Percent Auto 0.9 % (0-2); Eosinophils Absolute Auto 0 /uL (0-450); Eosinophils Percent Auto 0.5 % (2-4); Hematocrit 40.1 % (36-46); Hemoglobin 13.8 g/dL (12.0-16.0); Lymphocytes Absolute Auto 1400 /uL (1100-4500); Lymphocytes Percent Auto 26.8 % (25-40); Mean Corpuscular HGB Conc 34.3 % (30-36); Mean Corpuscular Hemoglobin 31.8 PG (26-34); Mean Corpuscular Volume 92.6 fL (80-100); Monocytes Absolute Auto 500 /uL (0-900); Monocytes Percent Auto 8.5 % (3-14); Neutrophils Absolute Auto 3400 /uL (1500-7000); Neutrophils Percent Auto 63.3 % (50-75); Platelet Count 262 X10^3/uL (150-400); Red Blood Cell Count 4.33 X10^6/uL (4.0-5.2); White Blood Cell Count 5.3 X10^3/uL (4.5-11.0)
[2021-04-23 13:39] LABS: INR 1.2 (0.9-1.3); Prothrombin Time 13.3 SECONDS (10.1-12.7)
[2021-04-23 13:42] LABS: PTT Partial Thromboplastin Tim 40 SECONDS (26.4-36.2)
[2021-04-23 13:46] LABS: Alanine Aminotransferase 20 IU/L (<35); Albumin 4.3 g/dL (3.5-5.0); Albumin Globulin Ratio 1.3 (1.0-2.8); Alkaline Phosphatase 61 U/L (38-126); Aspartate Aminotransferase 31 IU/L (14-36); BUN Creatinine Ratio 18.4 (6-22); Bilirubin Total 1.2 mg/dL (0.2-1.3); Blood Urea Nitrogen 19 mg/dL (7-17); Calcium 9.7 mg/dL (8.4-10.2); Carbon Dioxide 25 mmol/L (22-32); Chloride 107 mmol/L (98-107); Creatine Kinase 78 U/L (30-135); Estimated Glomerular Filt Rate 52.2 mL/min (>60); Globulin 3.3 g/dL (1.7-4.1); Glucose 100 mg/dL (80-110); HEMOLYSIS < 15 (0-50); Lipase 118 U/L (23-300); Magnesium 2.1 mg/dL (1.6-2.3); Potassium 4.5 mmol/L (3.4-5.1); Sodium 139 mmol/L (137-145); Total Protein 7.6 g/dL (6.3-8.2)
[2021-04-23 13:54] LABS: NT-proBNP (BNP-Adult 18+) 387 pg/mL (<450)
[2021-04-23 13:56] LABS: Troponin I < 0.012 ng/mL (0.01-0.034)
--- NOTE | 2021-04-23 15:35 | ED.GENADULT ---
HPI - General Adult <JHONY Atkins - Last Filed: 04/23/21 22:02> General Chief complaint: Hypertension Stated complaint: HIGH BLOOD PRESSURE OF THE CHEST Time Seen by Provider: 04/23/21 15:35 Source: patient Mode of arrival: Ambulatory History of Present Illness HPI narrative: 75-year-old female presents to the emergency department for isolated episode of hypertension which started this morning, she noticed that her blood pressure was higher than it should be. That she has had episodes of chest pressure in the past few years, denies any heart racing or palpitations but endorses feeling some of this pressure today so she came into the emergency department. At home patient takes atorvastatin, levothyroxine, and lisinopril daily February 17, 2021 patient presented to the emergency department for AFib with RVR, she was discharged on Eliquis but never filled the prescription. Patient has seen Dr. Keating her plastic installer and has a scheduled appointment later this month with him. Patient is no longer in AFib, I am unsure of the details of when this changed however patient has not had any racing heart or palpitations since. Patient denies any dizziness, lightheadedness, nausea vomiting, chest pain, chest pain or pressure with exertion, shortness of breath, or any other symptoms. Currently patient is asymptomatic, in good health, is active daily without any of the symptoms. Patient denies any history of AFib, only this isolated episode in she tracks her heart rate via her Fitbit and notes that her heart rate is typically in the 40-50 beat per minute range and has been since this episode of AFib. Related Data Home Medications Medication Instructions Recorded Confirmed atorvastatin 10 mg tablet (Lipitor) 10 mg PO DAILY 02/18/21 04/23/21 levothyroxine 25 mcg tablet 25 mcg PO DAILY 02/18/21 04/23/21 lisinopril 10 mg tablet 10 mg PO DAILY 02/18/21 04/23/21 Allergies Allergy/AdvReac Type Severity Reaction Status Date / Time No Known Drug Allergies Allergy Verified 04/23/21 12:05 Review of Systems <JHONY Atkins - Last Filed: 04/23/21 22:02> Review of Systems Narrative: General: denies fever, chills Head/Neck: denies headache, neck pain Eyes: denies visual changes, eye pain Cardio: denies chest pain, palpitations Respiratory: denies shortness of breath, cough GI: denies abdominal pain, nausea, vomiting, or diarrhea : denies dysuria, hematuria MSK: denies joint pain, muscle weakness Skin: denies rash, itching Neuro: denies numbness, tingling Patient History <JHONY Atkins - Last Filed: 04/23/21 22:02> Medical History Essential hypertension History of benign parathyroid tumor Hyperlipidemia Hypothyroidism Insomnia Surgical History History of hysterectomy Family History Mother Stroke Lupus Father Heart attack Social History household members: spouse Smoking Status: Never smoker Smoking Status: Never smoker alcohol intake frequency: 0-2 drinks per day Substance Use Type: does not use Exam <JHONY Atkins - Last Filed: 04/23/21 22:02> Narrative Exam Narrative: Independently reviewed vitals signs and nursing notes. General: Awake, alert, nontoxic, no cardiorespiratory distress Head/Neck: Atraumatic, neck full range of motion Eyes: EOMI, conjunctiva normal Nose: nares patent, no rhinorrhea Mouth/Throat: moist mucus membranes, posterior pharynx normal, no oral lesions Cardio: Regular rate and rhythm, no peripheral edema Respiratory: respirations unlabored without wheezing, stridor, or rales. No retractions. GI: Abdomen soft, nontender MSK: Moves all extremities, neurovascularly intact Skin: Normal capillary refill, no rash Neuro: Normal speech and cognition, normal gait Initial Vital Signs Initial Vital Signs: Vital Signs Temperature 97.2 F L 04/23/21 12:58 Pulse Rate 58 L 04/23/21 12:58 Respiratory Rate 14 04/23/21 12:58 Blood Pressure 190/88 H 04/23/21 12:58 Pulse Oximetry 99 04/23/21 12:58 <Angelica Fraser MD - Last Filed: 05/12/21 13:32> Initial Vital Signs Initial Vital Signs: Vital Signs Temperature 97.2 F L 04/23/21 12:58 Pulse Rate 58 L 04/23/21 12:58 Respiratory Rate 14 04/23/21 12:58 Blood Pressure 190/88 H 04/23/21 12:58 Pulse Oximetry 99 04/23/21 12:58 Course <JHONY Atkins - Last Filed: 04/23/21 22:02> Orders Ordered: ED Orders 04/23/21 13:03 XR chest 1V Stat EKG-12 Lead Stat 04/23/21 13:28 BNP [NT-proBNP (BNP-Adult 18+)] Stat Complete Blood Count AUTO DIFF Stat Comprehensive Metabolic Panel Stat Lipase Stat Magnesium Stat Partial Thromboplastin Time Stat Prothrombin Time INR Stat Troponin & CK Cardiac Panel Stat Vital Signs Vital signs: Vital Signs - 8 hr 04/23/21 14:00 04/23/21 14:12 04/23/21 14:47 Pulse Rate 47 L 47 L 48 L Respiratory Rate 24 36 H Blood Pressure 157/52 H Pulse Oximetry 98 97 100 04/23/21 14:48 04/23/21 15:00 04/23/21 15:01 Pulse Rate 47 L 51 L 52 L Respiratory Rate 25 H 39 H 34 H Blood Pressure 172/74 H 191/94 H Pulse Oximetry 98 98 98 04/23/21 15:03 04/23/21 15:16 04/23/21 15:30 Pulse Rate 53 L 47 L 46 L Respiratory Rate 33 H 25 H 36 H Blood Pressure 191/94 H 168/70 H 158/70 H Pulse Oximetry 98 97 97 04/23/21 15:46 Pulse Rate 48 L Respiratory Rate 29 H Blood Pressure 162/67 H Pulse Oximetry 97 <Angelica Fraser MD - Last Filed: 05/12/21 13:32> Orders Ordered: ED Orders 04/23/21 13:03 XR chest 1V Stat EKG-12 Lead Stat 04/23/21 13:28 BNP [NT-proBNP (BNP-Adult 18+)] Stat Complete Blood Count AUTO DIFF Stat Comprehensive Metabolic Panel Stat Lipase Stat Magnesium Stat Partial Thromboplastin Time Stat Prothrombin Time INR Stat Troponin & CK Cardiac Panel Stat Vital Signs Vital signs: Vital Signs - 8 hr 04/23/21 14:00 04/23/21 14:12 04/23/21 14:47 Pulse Rate 47 L 47 L 48 L Respiratory Rate 24 36 H Blood Pressure 157/52 H Pulse Oximetry 98 97 100 04/23/21 14:48 04/23/21 15:00 04/23/21 15:01 Pulse Rate 47 L 51 L 52 L Respiratory Rate 25 H 39 H 34 H Blood Pressure 172/74 H 191/94 H Pulse Oximetry 98 98 98 04/23/21 15:03 04/23/21 15:16 04/23/21 15:30 Pulse Rate 53 L 47 L 46 L Respiratory Rate 33 H 25 H 36 H Blood Pressure 191/94 H 168/70 H 158/70 H Pulse Oximetry 98 97 97 04/23/21 15:46 Pulse Rate 48 L Respiratory Rate 29 H Blood Pressure 162/67 H Pulse Oximetry 97 Medical Decision Making <JHONY Atkins - Last Filed: 04/23/21 22:02> Lab Data Result diagrams: 04/23/21 13:28 04/23/21 13:28 Labs: Lab Results 04/23/21 04/23/21 04/23/21 Range/Units 13:28 13:28 13:28 WBC 5.3 (4.5-11.0) X10^3/uL RBC 4.33 (4.0-5.2) X10^6/uL Hgb 13.8 (12.0-16.0) g/dL Hct 40.1 (36-46) % MCV 92.6 (80-100) fL MCH 31.8 (26-34) PG MCHC 34.3 (30-36) % RDW 13.0 (11.6-14.8) % Plt Count 262 (150-400) X10^3/uL Neut % (Auto) 63.3 (50-75) % Lymph % (Auto) 26.8 (25-40) % [place] % (Auto) 8.5 (3-14) % Eos % (Auto) 0.5 L (2-4) % Baso % (Auto) 0.9 (0-2) % Neut # (Auto) 3400 (9746-9955) /uL Lymph # (Auto) 1400 (3840-1280) /uL [place] # (Auto) 500 (0-900) /uL Eos # (Auto) 0 (0-450) /uL Baso # (Auto) 100 (0-100) /uL PT 13.3 H (10.1-12.7) SECONDS INR 1.2 (0.9-1.3) APTT 40 H (26.4-36.2) SECONDS Sodium 139 (137-145) mmol/L Potassium 4.5 (3.4-5.1) mmol/L Chloride 107 (98-107) mmol/L Carbon Dioxide 25 (22-32) mmol/L BUN 19 H (7-17) mg/dL Creatinine 1.03 (0.52-1.04) mg/dL Estimated GFR 52.2 L (>60) mL/min BUN/Creatinine Ratio 18.4 (6-22) Glucose 100 (80-110) mg/dL Calcium 9.7 (8.4-10.2) mg/dL Magnesium 2.1 (1.6-2.3) mg/dL Total Bilirubin 1.2 (0.2-1.3) mg/dL AST 31 (14-36) IU/L ALT 20 (<35) IU/L Alkaline Phosphatase 61 (38-126) U/L Total Creatine Kinase 78 (30-135) U/L CK-MB (CK-2) TNP CK-MB (CK-2) Rel Index TNP Troponin I < 0.012 (0.01-0.034) ng/mL NT-Pro-B Natriuret Pep (<450) pg/mL Total Protein 7.6 (6.3-8.2) g/dL Albumin 4.3 (3.5-5.0) g/dL Globulin 3.3 (1.7-4.1) g/dL Albumin/Globulin Ratio 1.3 (1.0-2.8) Lipase 118 (23-300) U/L 04/23/21 Range/Units 13:28 WBC (4.5-11.0) X10^3/uL RBC (4.0-5.2) X10^6/uL Hgb (12.0-16.0) g/dL Hct (36-46) % MCV (80-100) fL MCH (26-34) PG MCHC (30-36) % RDW (11.6-14.8) % Plt Count (150-400) X10^3/uL Neut % (Auto) (50-75) % Lymph % (Auto) (25-40) % [place] % (Auto) (3-14) % Eos % (Auto) (2-4) % Baso % (Auto) (0-2) % Neut # (Auto) (0817-6773) /uL Lymph # (Auto) (9601-0088) /uL [place] # (Auto) (0-900) /uL Eos # (Auto) (0-450) /uL Baso # (Auto) (0-100) /uL PT (10.1-12.7) SECONDS INR (0.9-1.3) APTT (26.4-36.2) SECONDS Sodium (137-145) mmol/L Potassium (3.4-5.1) mmol/L Chloride (98-107) mmol/L Carbon Dioxide (22-32) mmol/L BUN (7-17) mg/dL Creatinine (0.52-1.04) mg/dL Estimated GFR (>60) mL/min BUN/Creatinine Ratio (6-22) Glucose (80-110) mg/dL Calcium (8.4-10.2) mg/dL Magnesium (1.6-2.3) mg/dL Total Bilirubin (0.2-1.3) mg/dL AST (14-36) IU/L ALT (<35) IU/L Alkaline Phosphatase (38-126) U/L Total Creatine Kinase (30-135) U/L CK-MB (CK-2) CK-MB (CK-2) Rel Index Troponin I (0.01-0.034) ng/mL NT-Pro-B Natriuret Pep 387 (<450) pg/mL Total Protein (6.3-8.2) g/dL Albumin (3.5-5.0) g/dL Globulin (1.7-4.1) g/dL Albumin/Globulin Ratio (1.0-2.8) Lipase (23-300) U/L Imaging Data Chest x-ray: Radiologist's Impression: PROCEDURE:? XR CHEST 1V ? INDICATIONS:? chest pain ? TECHNIQUE:? One view of the chest was acquired.? ? COMPARISON:? [facility], , XR CHEST 1V, 02/17/2021, 20:40. ? FINDINGS:? ? Surgical changes and devices:? None.? ? Lungs and pleura:? Persistent streaky/linear opacity of the left lung base.? No new focal consolidations or acute airspace disease identified.? No pneumothorax or pleural effusion. ? Mediastinum:? Mediastinal contours appear normal.? Heart size is normal.? ? Bones and chest wall:? No suspicious bony lesions.? Overlying soft tissues appear unremarkable.? ? IMPRESSION:? Persistent, stable appearance of streaky opacity of the left lung base which is again favored to represent atelectasis/scarring over pneumonia. Otherwise, no acute cardiopulmonary abnormalities identified.? ? Dictated by: Johnson Last M.D. on 04/23/2021 at 13:53 ? ? Approved by: Johnson Last M.D. on 04/23/2021 at 13:55 ? ECG Data Interpretation: Patient with sinus bradycardia, no ST elevation, no ectopy, no ST changes or rhythm abnormalities. MDM Narrative Medical decision making narrative: 75-year-old female presents to the emergency department for concerns about hypertension. Patient normally takes lisinopril 10 mg daily, today her blood pressure was between 160 and 180 systolic, she reports that this is high for her. She denies any caffeine use, or any other triggers that she knows. She did have an isolated episode of AFib in January 2021, she has not had any episodes of palpitations since then is not currently taking any anticoagulants. Workup today is unremarkable, patient is asymptomatic at this time, blood pressure has been between 140 and 160 systolic. She has an upcoming appointment with Dr. Keating to discuss these things, I do not feel strongly about changing her medications for an isolated episode of hypertension. She denies any nausea, vomiting, lower extremity swelling, orthopnea, headache, weakness, or any other symptom. Because patient's blood pressure came down without intervention, I recommend her follow-up with Dr. Keating and to return to the emergency department if she developed any symptoms along with this in the future or if she develops any exertional chest pain or pressure. Chest X-ray today was negative for any acute cardiopulmonary processes, her streaky opacity of the left lung base is most likely due to her previous pneumonia infections as she does not have any respiratory symptoms at this time. Patient is appropriate and amenable to discharge home. Vital signs are stable on repeat examination is unremarkable. Patient has been informed of results. Patient has been given strict return to ER precautions for any new or worsening symptoms. Patient understands to follow up closely with outpatient providers as instructed. Patient understands plan and agrees to discharge home. All questions and concerns answered at this time. <Angelica Fraser MD - Last Filed: 05/12/21 13:32> Lab Data Labs: Lab Results 04/23/21 04/23/21 04/23/21 Range/Units 13:28 13:28 13:28 WBC 5.3 (4.5-11.0) X10^3/uL RBC 4.33 (4.0-5.2) X10^6/uL Hgb 13.8 (12.0-16.0) g/dL Hct 40.1 (36-46) % MCV 92.6 (80-100) fL MCH 31.8 (26-34) PG MCHC 34.3 (30-36) % RDW 13.0 (11.6-14.8) % Plt Count 262 (150-400) X10^3/uL Neut % (Auto) 63.3 (50-75) % Lymph % (Auto) 26.8 (25-40) % [place] % (Auto) 8.5 (3-14) % Eos % (Auto) 0.5 L (2-4) % Baso % (Auto) 0.9 (0-2) % Neut # (Auto) 3400 (6753-3985) /uL Lymph # (Auto) 1400 (3355-6069) /uL [place] # (Auto) 500 (0-900) /uL Eos # (Auto) 0 (0-450) /uL Baso # (Auto) 100 (0-100) /uL PT 13.3 H (10.1-12.7) SECONDS INR 1.2 (0.9-1.3) APTT 40 H (26.4-36.2) SECONDS Sodium 139 (137-145) mmol/L Potassium 4.5 (3.4-5.1) mmol/L Chloride 107 (98-107) mmol/L Carbon Dioxide 25 (22-32) mmol/L BUN 19 H (7-17) mg/dL Creatinine 1.03 (0.52-1.04) mg/dL Estimated GFR 52.2 L (>60) mL/min BUN/Creatinine Ratio 18.4 (6-22) Glucose 100 (80-110) mg/dL Calcium 9.7 (8.4-10.2) mg/dL Magnesium 2.1 (1.6-2.3) mg/dL Total Bilirubin 1.2 (0.2-1.3) mg/dL AST 31 (14-36) IU/L ALT 20 (<35) IU/L Alkaline Phosphatase 61 (38-126) U/L Total Creatine Kinase 78 (30-135) U/L CK-MB (CK-2) TNP CK-MB (CK-2) Rel Index TNP Troponin I < 0.012 (0.01-0.034) ng/mL NT-Pro-B Natriuret Pep (<450) pg/mL Total Protein 7.6 (6.3-8.2) g/dL Albumin 4.3 (3.5-5.0) g/dL Globulin 3.3 (1.7-4.1) g/dL Albumin/Globulin Ratio 1.3 (1.0-2.8) Lipase 118 (23-300) U/L 04/23/21 Range/Units 13:28 WBC (4.5-11.0) X10^3/uL RBC (4.0-5.2) X10^6/uL Hgb (12.0-16.0) g/dL Hct (36-46) % MCV (80-100) fL MCH (26-34) PG MCHC (30-36) % RDW (11.6-14.8) % Plt Count (150-400) X10^3/uL Neut % (Auto) (50-75) % Lymph % (Auto) (25-40) % [place] % (Auto) (3-14) % Eos % (Auto) (2-4) % Baso % (Auto) (0-2) % Neut # (Auto) (6968-0986) /uL Lymph # (Auto) (9737-5583) /uL [place] # (Auto) (0-900) /uL Eos # (Auto) (0-450) /uL Baso # (Auto) (0-100) /uL PT (10.1-12.7) SECONDS INR (0.9-1.3) APTT (26.4-36.2) SECONDS Sodium (137-145) mmol/L Potassium (3.4-5.1) mmol/L Chloride (98-107) mmol/L Carbon Dioxide (22-32) mmol/L BUN (7-17) mg/dL Creatinine (0.52-1.04) mg/dL Estimated GFR (>60) mL/min BUN/Creatinine Ratio (6-22) Glucose (80-110) mg/dL Calcium (8.4-10.2) mg/dL Magnesium (1.6-2.3) mg/dL Total Bilirubin (0.2-1.3) mg/dL AST (14-36) IU/L ALT (<35) IU/L Alkaline Phosphatase (38-126) U/L Total Creatine Kinase (30-135) U/L CK-MB (CK-2) CK-MB (CK-2) Rel Index Troponin I (0.01-0.034) ng/mL NT-Pro-B Natriuret Pep 387 (<450) pg/mL Total Protein (6.3-8.2) g/dL Albumin (3.5-5.0) g/dL Globulin (1.7-4.1) g/dL Albumin/Globulin Ratio (1.0-2.8) Lipase (23-300) U/L Discharge Plan Departure Patient Disposition: Home Clinical Impression: Essential hypertension, Chest pressure Instructions: DI for Angina, DI for High Blood Pressure Activity Restrictions/Additional Instructions: *You have been diagnosed with chest pressure, and essential hypertension. Please continue taking your regular medications and follow up with Dr. Lynch while at your scheduled visit. I sent your chart to him so that he see that were here and the workup that we completed. There were no concerning findings on your workup. Today you are in normal sinus rhythm. If you developed any chest pain or pressure, shortness of breath, dizziness, or other symptoms during activity please return to the emergency department for an evaluation. If you develop the symptoms at rest, they also might be concerning so please come back to the emergency department if you develop them. *What to do: *Please continue to take your regular medications as directed. [ ] New medication prescriptions sent to your pharmacy: [ ] [ ] New medication written as a paper prescription [ x] No new medications given *Please follow up with your primary care provider in 2-3 days, call for an appointment. Let them know you were seen in the Emergency Department and that we ask that you be seen in follow up. We will electronically transmit a record of today's note if your PCP is in our system *If you do not have a primary care provider please contact the [facility] Resource line at [phone]. They will ask some questions about your medical history and help get you set up with a doctor in the community. *Return to Emergency Department if you should have any new, worsening or concerning symptoms, such as [fever greater than 101F, chills, worsening pain, persistent vomiting or other bothersome symptoms] Prescriptions: No Action atorvastatin [Lipitor] 10 mg Tablet 10 mg PO DAILY 0RF levothyroxine 25 mcg Tablet 25 mcg PO DAILY 0RF lisinopril 10 mg Tablet 10 mg PO DAILY 0RF Referrals: Gaby Rojas PA-C [Primary Care Provider] - Nathan Keating MD [Physician] - (as scheduled at your appointment) <Angelica Fraser MD - Last Filed: 05/12/21 13:32> Cosign ED Attending Cosignature Attestation: I was immediately available in the department for consultation throughout this patient's visit. I agree with documentation as above. Angelica Fraser MD
== END 2021-04-23 16:59 | disposition home or self-care (01) ==
PROVIDERS: Emergency Medicine; Emergency Provider Nurse Practitioner Critical Care Medicine; PCP Student in an Organized Health Care Education/Training Program
DX: R07.9 Chest pain, unspecified (principal); I10 Essential (primary) hypertension; R00.1 Bradycardia, unspecified
CPT/HCPCS: 36415; 71045; 80053; 82550; 83690; 83735; 83880; 84484; 85025; 85610; 85730; 93005; 93010; 99283; 99284

== ENCOUNTER → 2021-07-03 13:05 | Outpatient (CLI) | payer MEDICARE, OTHER, SELFPAY ==
[2021-02-18 02:45] VITALS: BMI 24.3
[2021-07-03 17:39] LABS: COVID19 -Nasal RAPID Negative (Negative)
== END ==
PROVIDERS: PCP Student in an Organized Health Care Education/Training Program; Visit Provider Nurse Practitioner Family
DX: Z20.822 Contact with and (suspected) exposure to COVID-19 (principal)
CPT/HCPCS: 87635; C9803

== ENCOUNTER → 2021-07-04 09:43 | Outpatient (CLI) | payer MEDICARE, OTHER, SELFPAY ==
[2021-02-18 02:45] VITALS: BMI 24.3
--- NOTE | 2021-07-04 | DI.NM.S_ITS ---
PROCEDURE: NM TRUE PERF SPECT REST & STR Rest and exercise myocardial perfusion SPECT with gated imaging and ejection fraction RADIOPHARMACEUTICAL: 11.4 mCi Tc-99m sestamibi IV at rest and 25.7 mCi Tc-99m sestamibi IV at peak exercise. A [id number] was performed. INDICATIONS: Paroxysmal atrial fibrillation TECHNIQUE: Radiopharmaceutical was injected at peak stress test, and also at rest. SPECT images were obtained. SPECT myocardial perfusion images were displayed in short axis, horizontal long axis, and vertical long axis views. Gated images were reviewed using Crew[employer] software. COMPARISON: None. CARDIAC STRESS: A standard Karlo treadmill exercise tolerance test was performed by the patient under the supervision of an attending staff. The patient exercised for 7 minutes and 35 seconds; functional aerobic impairment (FOREST) is -46%. Hemodynamic data: There is normal blood pressure and heart rate response to exercise stress. Patient achieved 101% of maximum predicted heart rate at peak exercise. Symptoms: Patient denied chest pain during exercise. EKG: sinus rhythm with no ST changes at rest. With exercise, there were mild horizontal ST depressions in the inferior and anterolateral leads. Frequent PACs, including brief atrial runs noted. Rare PVCs. FINDINGS: Raw data: There is good myocardial labeling by radiotracer. No significant motion artifacts. Fqha-gm-[id number] ratio is 0.34 (normal is less than 0.38 for sestamibi tracer, and less than 0.50 for thallium tracer). Left ventricle function: Gated images demonstrate normal left ventricle wall thickening. No segmental wall motion abnormality. No transient ischemic dilation; TID is 0.92 (normal less than 1.3). The left ventricle resting end-diastolic volume is 102 mL. Left ventricle stress ejection fraction is 66%; normal values are above 45%. Myocardial perfusion: There is a mildly intense fixed distal anterior wall defect that improves with prone imaging, suggesting probable breast attenuation artifact but old small non-transmural infarct can't be definitively excluded. No ischemia. IMPRESSION: Low risk, probably normal treadmill nuclear stress test 1) There is a mildly intense fixed distal anterior wall defect that improves with prone imaging, suggesting probable breast attenuation artifact but old small non-transmural infarct can't be definitively excluded. No ischemia. SSS 1 (stress supine). 2) Normal left ventricular size, wall motion, and systolic function (EF post stress 66%). 3) Mild horizontal ST depressions with exercise. These changes are non-diagnostic in the setting of reassuring perfusion images. 4) Frequent PACs, including brief atrial runs noted during exercise and recovery. 5) No angina during the study. 6) Very good exercise tolerance (FOREST -46%). Target heart rate achieved. Appropriate BP response to exercise. 7) No prior nuclear stress test available for comparison. Dictated by: Lisa Graham MD on 07/04/2021 at 17:15 Approved by: Lisa Graham MD on 07/04/2021 at 17:23
--- NOTE | 2021-07-04 15:24 | PM.TREADMILL ---
Cardiac Stress Test Report Referral & Results Date Patient Seen: 07/04/21 Time Patient Seen: 15:24 Requesting provider: Lisa Graham Indication: Paroxysmal atrial fibrillation Rest ECG: Sinus bradycardia with nonspecific st changes Procedure Note: Standard Karlo protocol, 7:35, 7.7 METS Very good exercise capacity, cezar -46% Normal hemodynamic response to exercise No chest pain or anginal symptoms Non specific ST changes in V4-V6 at peak exercise 3 beat NSVT, 8 beat NSVT, brief episode of svt, isolated PVC in recovery, patient was asymptomatic Impression: Normal exercise stress test Nuclear images pending Please note: Actual ECG tracings can be found in the PACS system.
== END ==
PROVIDERS: PCP Student in an Organized Health Care Education/Training Program; Referring Provider Internal Medicine Cardiovascular Disease; Visit Provider Internal Medicine Cardiovascular Disease
DX: I48.0 Paroxysmal atrial fibrillation (principal); I49.1 Atrial premature depolarization
CPT/HCPCS: 78452; 93017; A9502

== ENCOUNTER → 2021-12-16 12:57 | Outpatient (CLI) | payer MEDICARE, OTHER, SELFPAY ==
[2021-02-18 02:45] VITALS: BMI 24.3
--- NOTE | 2021-12-16 | DI.MG.S_ITS ---
BILATERAL DIGITAL SCREENING MAMMOGRAM 3D/2D WITH CAD: 12/16/2021 CLINICAL: Routine screening. Comparison is made to exams dated: 08/02/2020 mammogram, 12/03/2018 mammogram, and 11/02/2017 mammogram - [facility]. Both breasts are heterogeneously dense, which may obscure small masses (category c / 51-75% glandular tissue). Current study was also evaluated with a Computer Aided Detection (CAD) system. No significant masses, calcifications, or other findings are seen in either breast. There has been no significant interval change. IMPRESSION: NEGATIVE There is no mammographic evidence of malignancy. A 1 year screening mammogram is recommended. Based on the Tyrer Cuzick model (a risk assessment model) the patient's lifetime risk is 3.3% and her 10 year risk is 0.0%. According to the ACR, ACS, and NCCN guidelines, an annual breast MRI exam along with mammogram is recommended if the patient's lifetime risk is 20% or greater. This exam was interpreted at Station ID: [id number]. NOTE: For mammograms, a report in lay terms will be sent to the patient. Approximately 15% of breast malignancies will not be visualized mammographically. In the management of a palpable breast mass, a negative mammogram must not discourage biopsy of a clinically suspicious lesion. Electronically Signed By: Jean-Pierre anderson/minerva:12/16/2021 13:35:11 letter sent: Normal Exam ACR BI-RADS Category 1: Negative [id number]
== END ==
PROVIDERS: PCP Internal Medicine; Referring Provider Internal Medicine; Visit Provider Internal Medicine
DX: Z12.31 Encounter for screening mammogram for malignant neoplasm of breast (principal)
CPT/HCPCS: 77063; 77067

== ENCOUNTER → 2022-03-20 12:20 | Outpatient (CLI) | payer MEDICARE, OTHER, SELFPAY ==
[2021-02-18 02:45] VITALS: BMI 24.3
--- NOTE | 2022-03-20 | DI.ECHO.S_ITS ---
[facility] +---------+ : : [address] : : [place] : : : : [id number] : : : : Phone: [phone]+ Echocardiogram Report + + :Name: JOANNE SOARES Study Date: 03/20/2022 Height: 61 in : :[facility] ReadingLocation: Weight: 127 lb : : Gender: Female BSA: 1.6 m2 : :: 1945 Age: 76 yrs BP: 175/81 mmHg: :Reason For Study: Aortic valve regurgitation : :Ordering Physician: RICHARD, : :PAOLA Performed By: Maurisio Hitchcock : :Referring: PAOLA GRAHAM : + + Interpretation Summary 1) Normal left ventricular thickness, size, wall motion, and systolic function (EF 55-60%). 2) Normal right ventricular size and function. 3) There is moderate aortic regurgitation. 4) Hypertension present during the study (BP 175/81mmHg). 5) Compared to the echo done 02/18/2021, no significant change. Procedure: A two-dimensional transthoracic echocardiogram with color flow and Doppler was performed. The study quality was technically adequate. There is no prior echocardiogram noted for this patient. Left Ventricle: The left ventricle is normal in size and wall thickness. Left ventricular systolic function is normal. The ejection fraction is estimated to be 55-60%. There are no focal wall motion abnormalities. Diastolic parameters suggest a relaxation abnormality of the left ventricle, consistent with probable normal filling pressures. Right Ventricle: The right ventricle is normal in size and function. Atria: Both atria are moderately dilated. The interatrial septum grossly appears intact with no obvious evidence for an atrial septal defect. Mitral Valve: The mitral valve is normal in structure and function. There is mild mitral regurgitation. Aortic Valve: The aortic valve is normal in structure and function. There is no aortic valve stenosis. There is moderate aortic regurgitation. Tricuspid Valve: The tricuspid valve is normal in structure and function. There is trace tricuspid regurgitation. Pulmonary artery pressures cannot be estimated because of the lack of a measurable TR jet velocity. Pulmonic Valve: The pulmonic valve is not well visualized. Great Vessels: The aortic root is normal size. The ascending aorta could not be visualized. The IVC is of normal diameter and collapses greater than 50% with a sniff. This suggests a low right atrial pressure of 3 mm Hg. Pericardium/ Pleura There is no pericardial effusion. There is no pleural effusion. MMode/2D Measurements & Calculations LVIDd: 5.1 cm LVOT diam: 2.0 cm LVIDs: 3.2 cm Ao root diam: 2.9 cm FS: 37.3 % IVSd: 0.80 cm LVPWd: 0.80 cm LV fraser. diameter/BSA (cm/m^2): 3.3 LV sys. diameter/BSA (cm/m^2): 2.1 LA dimension: 3.6 cm RA long axis: 5.9 cm LA A2 area: 20.7 cm2 RA area: 20.0 cm2 LA A4 area: 22.2 cm2 RA vol: 57.4 ml LA length (vol): 6.0 cm RA : 36.8 ml/m2 LA vol: 65.4 ml LA vol index: 42.0 ml/m2 TAPSE_phl: 2.9 cm Doppler Measurements & Calculations Ao V2 max: 202.0 cm/sec LVOT Max Selwyn: 179.0 cm/sec Ao V2 mean: 130.0 cm/sec LV V1 max P.8 mmHg Ao max P.0 mmHg LV V1 VTI: 37.7 cm Ao mean P.0 mmHg KEENA(I,D): 2.7 cm2 Ao V2 VTI: 44.4 cm KEENA(V,D): 2.8 cm2 sev ratio: 0.85 KEENA indexed to BSA (cm^2/m^2): 1.7 AI P1/2t: 357.6 msec AI dec slope: 409.5 cm/sec2 MV E max selwyn: 84.8 cm/sec SV(LVOT): 118.4 ml MV A max selwyn: 61.8 cm/sec MV E/A: 1.4 Med Peak E' Selwyn: 7.3 cm/sec E/E' med: 11.7 Lat Peak E' Selwyn: 12.2 cm/sec E/E' lat: 7.0 E/e' average: 9.3 MV dec time: 0.23 sec AV P1/2t-pr_phl: 359.5 msec MV P1/2t-pr_phl: 67.0 msec AV VR_phl: 0.89 KEENA(VTI)/BSA_phl: 1.7 Reading Physician:05:44 PM
== END ==
PROVIDERS: PCP Internal Medicine; Referring Provider Internal Medicine Cardiovascular Disease; Visit Provider Internal Medicine Cardiovascular Disease
DX: I08.0 Rheumatic disorders of both mitral and aortic valves (principal)
CPT/HCPCS: 93306

== ENCOUNTER → 2022-05-06 09:18 | Outpatient (CLI) | payer MEDICARE, OTHER, SELFPAY ==
[2021-02-18 02:45] VITALS: BMI 24.3
[2022-05-06 09:59] LABS: Add Manual Diff / Slide Review NO; Basophils Absolute Auto 100 /uL (0-100); Basophils Percent Auto 1.4 % (0-2); Eosinophils Absolute Auto 100 /uL (0-450); Eosinophils Percent Auto 2.2 % (2-4); Hematocrit 40.2 % (36-46); Hemoglobin 13.6 g/dL (12.0-16.0); Lymphocytes Absolute Auto 1900 /uL (1100-4500); Lymphocytes Percent Auto 42.8 % (25-40); Mean Corpuscular HGB Conc 33.8 % (30-36); Mean Corpuscular Hemoglobin 32.4 PG (26-34); Monocytes Absolute Auto 500 /uL (0-900); Monocytes Percent Auto 11.4 % (3-14); Neutrophils Absolute Auto 1900 /uL (1500-7000); Neutrophils Percent Auto 42.2 % (50-75); Platelet Count 253 X10^3/uL (150-400); Red Blood Cell Count 4.19 X10^6/uL (4.0-5.2); Red Cell Distribution Width 12.8 % (11.6-14.8); White Blood Cell Count 4.4 X10^3/uL (4.5-11.0)
[2022-05-06 10:23] LABS: BUN Creatinine Ratio 18.1 (6-22); Blood Urea Nitrogen 17 mg/dL (7-17); Calcium 9.3 mg/dL (8.4-10.2); Carbon Dioxide 25 mmol/L (22-32); Chloride 104 mmol/L (98-107); Estimated Glomerular Filt Rate > 60 mL/min (>60); Glucose 92 mg/dL (80-110); HEMOLYSIS < 15 (0-50); Potassium 4.1 mmol/L (3.4-5.1); Sodium 139 mmol/L (137-145)
== END ==
PROVIDERS: PCP Internal Medicine; Referring Provider Internal Medicine Cardiovascular Disease; Visit Provider Internal Medicine Cardiovascular Disease
DX: I48.0 Paroxysmal atrial fibrillation (principal)
CPT/HCPCS: 36415; 80048; 85025

== ENCOUNTER 2022-08-06 20:19 | Emergency (ER) | payer MEDICARE, OTHER, SELFPAY ==
[2021-02-18 02:45] VITALS: BMI 24.3
[2022-08-06 20:25] VITALS: BP 138/81; PULSE 117; RESP 15; TEMP 37.1; O2SAT 97; BMI 24.1
--- NOTE | 2022-08-06 20:29 | DI.RAD.S_ITS ---
PROCEDURE: XR CHEST 1V INDICATIONS: chest pain TECHNIQUE: One view of the chest was acquired. COMPARISON: [facility], CR, XR CHEST 1V, 04/23/2021, 13:18. [facility], CR, XR CHEST 1V, 02/17/2021, 20:40. FINDINGS: Surgical changes and devices: None. Lungs and pleura: Similar left lung base scarring. No new consolidation or pleural effusion. Mediastinum: Mediastinal contours appear normal. Heart size is normal. Bones and chest wall: No suspicious bony lesions. Overlying soft tissues appear unremarkable. IMPRESSION: Similar left lung base scarring, without new consolidation or pleural effusion. Dictated by: Eligio Silva M.D. on 08/06/2022 at 21:20 Approved by: Eligio Silva M.D. on 08/06/2022 at 21:21
[2022-08-06 20:51] LABS: Add Manual Diff / Slide Review NO; Basophils Absolute Auto 100 /uL (0-100); Basophils Percent Auto 1.1 % (0-2); Eosinophils Absolute Auto 100 /uL (0-450); Eosinophils Percent Auto 1.1 % (2-4); Hematocrit 38.8 % (36-46); Hemoglobin 13.3 g/dL (12.0-16.0); Lymphocytes Absolute Auto 3100 /uL (1100-4500); Lymphocytes Percent Auto 42.8 % (25-40); Mean Corpuscular HGB Conc 34.2 % (30-36); Mean Corpuscular Hemoglobin 32.1 PG (26-34); Mean Corpuscular Volume 93.9 fL (80-100); Monocytes Absolute Auto 700 /uL (0-900); Monocytes Percent Auto 10.2 % (3-14); Neutrophils Absolute Auto 3300 /uL (1500-7000); Neutrophils Percent Auto 44.8 % (50-75); Platelet Count 291 X10^3/uL (150-400); Red Blood Cell Count 4.14 X10^6/uL (4.0-5.2); Red Cell Distribution Width 12.2 % (11.6-14.8); White Blood Cell Count 7.3 X10^3/uL (4.5-11.0)
[2022-08-06 20:57] LABS: INR 1.2 (0.9-1.3); Prothrombin Time 13.8 SECONDS (10.1-12.7)
[2022-08-06 21:00] LABS: PTT Partial Thromboplastin Tim 36 SECONDS (26-36)
[2022-08-06 21:11] LABS: Alanine Aminotransferase 23 IU/L (<35); Albumin 4.3 g/dL (3.5-5.0); Albumin Globulin Ratio 1.4 (1.0-2.8); Alkaline Phosphatase 61 U/L (38-126); Aspartate Aminotransferase 29 IU/L (14-36); BUN Creatinine Ratio 20.8 (6-22); Bilirubin Total 0.6 mg/dL (0.2-1.3); Blood Urea Nitrogen 20 mg/dL (7-17); Calcium 9.4 mg/dL (8.4-10.2); Carbon Dioxide 22 mmol/L (22-32); Chloride 105 mmol/L (98-107); Creatine Kinase 72 U/L (30-135); Estimated Glomerular Filt Rate > 60 mL/min (>60); Glucose 113 mg/dL (80-110); HEMOLYSIS < 15 (0-50); Lipase 119 U/L (23-300); Potassium 3.8 mmol/L (3.4-5.1); Sodium 136 mmol/L (137-145); Total Protein 7.3 g/dL (6.3-8.2)
[2022-08-06 21:21] LABS: Troponin I < 0.012 ng/mL (0.01-0.034)
[2022-08-06 21:49] VITALS: BP 137/89; PULSE 110; RESP 20; O2SAT 97
--- NOTE | 2022-08-06 23:29 | ED_ITS ---
HPI - Arrhythmia/Palpitations General Chief Complaint: Arrhythmia/Palpitations Stated Complaint: thinks a A-FIB attack Time Seen by Provider: 08/06/22 21:26 Source: patient Mode of arrival: Wheelchair History of Present Illness HPI narrative: Patient is a 77-year-old female with history of paroxysmal atrial fibrillation on metoprolol and Eliquis presenting today with increased heart rate. She noticed at 7:30 p.m. this evening that she had some irregular heartbeat. She was not dizzy or lightheaded no pain with shortness of breath. She reports this has happened to her. She is never been cardioverted. She is followed by Dr. Graham. Related Data Home Medications Medication Instructions Recorded Confirmed atorvastatin 10 mg tablet (Lipitor) 10 mg PO DAILY 02/18/21 04/23/21 levothyroxine 25 mcg tablet 25 mcg PO DAILY 02/18/21 04/23/21 lisinopril 10 mg tablet 10 mg PO DAILY 02/18/21 04/23/21 Allergies Allergy/AdvReac Type Severity Reaction Status Date / Time No Known Drug Allergies Allergy Verified 08/06/22 20:30 Review of Systems Review of Systems ROS Unobtainable: All systems reviewed & are unremarkable except as noted in HPI and below Patient History Medical History Essential hypertension History of benign parathyroid tumor Hyperlipidemia Hypothyroidism Insomnia Surgical History History of hysterectomy Family History Mother Stroke Lupus Father Heart attack Social History household members: spouse Smoking Status: Never smoker Smoking Status: Never smoker alcohol intake frequency: holidays/special occasions only Substance Use Type: does not use Exam Initial Vital Signs Initial Vital Signs: Vital Signs Temperature 98.8 F 08/06/22 20:25 Pulse Rate 117 H 08/06/22 20:25 Respiratory Rate 15 08/06/22 20:25 Blood Pressure 138/81 08/06/22 20:25 Pulse Oximetry 97 08/06/22 20:25 Oxygen Delivery Method Room Air 08/06/22 20:25 GENERAL: Alert pleasant 77-year-old female HEENT: Head atraumatic,EOMI, pupils reactive, face symmetric, moist mucous membranes CARDIOVASCULAR: Irregularly irregular no murmurs RESPIRATORY: Breath sounds equal bilaterally, no wheezes rales or rhonchi. ABDOMEN: Soft, nontender. Normoactive bowel sounds all 4 quadrants. No guarding or rebound. EXTREMITIES: Normal range of motion, no clubbing or edema. Neurovascularly intact NEUROLOGICAL: Alert and oriented x4. SKIN: Warm, dry, no laceration, no petechiae, no rashes or lesions. Procedures Cardioversion Consent Signed: Yes Indication: Atrial fibrillation Stability: Stable Number of attempts (shocks): 3 Joules used: 120, 150 and 200 Cardiac rhythm post-cardioversion: Atrial fibrillation Procedural Sedation Time out performed: Yes Indication: cardioversion ASA Class: I Mallampati Airway Classification: Class I IV Propofol dose (mg): 60 Course Orders Ordered: ED Orders 08/07/22 EKG-12 Lead Routine Discontinued Medications Metoprolol Succinate (Metoprolol Er 25 Mg Tablet) 25 mg PO NOW ONE Stop: 08/07/22 01:07 Last Admin: 08/07/22 01:39 Dose: 25 mg Documented By: KIANA Metoprolol Tartrate (Metoprolol Tartrate 5 Mg/5 Ml Inj) 5 mg IV NOW ONE Stop: 08/06/22 23:34 Last Admin: 08/06/22 23:38 Dose: 5 mg Documented By: KIANA Propofol (Propofol 200 Mg/20 Ml Vial) 60 mg 1 mg/kg (60 mg) IV NOW ONE Stop: 08/06/22 23:49 Last Admin: 08/06/22 23:59 Dose: 60 mg Documented By: KIANA Vital Signs Vital signs: Vital Signs - 8 hr 08/07/22 00:14 08/07/22 00:16 08/07/22 00:20 Pulse Rate 84 96 H 91 H Respiratory Rate 24 24 30 H Blood Pressure 113/70 118/70 122/58 L Pulse Oximetry 87 L 94 97 Oxygen Delivery Method Oxygen Flow Rate 3 08/07/22 01:39 08/07/22 01:46 Pulse Rate 103 H 103 H Respiratory Rate 20 Blood Pressure 108/74 108/74 Pulse Oximetry 96 Oxygen Delivery Method Room Air Oxygen Flow Rate MDM - Arrhythmia/Palpitations Lab Data 08/06/22 20:30 08/06/22 20:30 Labs: Lab Results 08/06/22 08/06/22 08/06/22 Range/Units 20:30 20:30 20:30 WBC 7.3 (4.5-11.0) X10^3/uL RBC 4.14 (4.0-5.2) X10^6/uL Hgb 13.3 (12.0-16.0) g/dL Hct 38.8 (36-46) % MCV 93.9 (80-100) fL MCH 32.1 (26-34) PG MCHC 34.2 (30-36) % RDW 12.2 (11.6-14.8) % Plt Count 291 (150-400) X10^3/uL Neut % (Auto) 44.8 L (50-75) % Lymph % (Auto) 42.8 H (25-40) % [place] % (Auto) 10.2 (3-14) % Eos % (Auto) 1.1 L (2-4) % Baso % (Auto) 1.1 (0-2) % Neut # (Auto) 3300 (2423-0935) /uL Lymph # (Auto) 3100 (1790-8830) /uL [place] # (Auto) 700 (0-900) /uL Eos # (Auto) 100 (0-450) /uL Baso # (Auto) 100 (0-100) /uL PT 13.8 H (10.1-12.7) SECONDS INR 1.2 (0.9-1.3) APTT 36 (26-36) SECONDS Sodium 136 L (137-145) mmol/L Potassium 3.8 (3.4-5.1) mmol/L Chloride 105 (98-107) mmol/L Carbon Dioxide 22 (22-32) mmol/L BUN 20 H (7-17) mg/dL Creatinine 0.96 (0.52-1.04) mg/dL Estimated GFR > 60 (>60) mL/min BUN/Creatinine Ratio 20.8 (6-22) Glucose 113 H (80-110) mg/dL Calcium 9.4 (8.4-10.2) mg/dL Magnesium 2.0 (1.6-2.3) mg/dL Total Bilirubin 0.6 (0.2-1.3) mg/dL AST 29 (14-36) IU/L ALT 23 (<35) IU/L Alkaline Phosphatase 61 (38-126) U/L Total Creatine Kinase 72 (30-135) U/L CK-MB (CK-2) TNP CK-MB (CK-2) Rel Index TNP Troponin I < 0.012 (0.01-0.034) ng/mL Total Protein 7.3 (6.3-8.2) g/dL Albumin 4.3 (3.5-5.0) g/dL Globulin 3.0 (1.7-4.1) g/dL Albumin/Globulin Ratio 1.4 (1.0-2.8) Lipase 119 (23-300) U/L Point of Care Testing Test Results Not applicable Imaging Data Chest x-ray: Radiologist's Impresson: PROCEDURE:? XR CHEST 1V ? INDICATIONS:? chest pain ? TECHNIQUE:? One view of the chest was acquired.? ? COMPARISON:? [facility], CR, XR CHEST 1V, 04/23/2021, 13:18.? [facility], CR, XR CHEST 1V, 02/17/2021, 20:40. ? FINDINGS:? ? Surgical changes and devices:? None.? ? Lungs and pleura:? Similar left lung base scarring.? No new consolidation or pleural effusion. ? Mediastinum:? Mediastinal contours appear normal.? Heart size is normal.? ? Bones and chest wall:? No suspicious bony lesions.? Overlying soft tissues appear unremarkable.? ? IMPRESSION:? Similar left lung base scarring, without new consolidation or pleural effusion. ? ? Dictated by: Eligio Silva M.D. on 08/06/2022 at 21:20 ? ? ECG Data Interpretation: EKG 1. Atrial fibrillation rate [address] changes EKG 2. Atrial fibrillation rate [address] changes MDM Narrative Medical decision making narrative: Patient has paroxysmal atrial fibrillation on Eliquis and metoprolol presenting today with atrial fibrillation. It has been ongoing for couple of hours. Rate is slightly elevated 120s to 130s. She is given IV Lopressor which helps some. She agrees to cardioversion. Attempted cardioversion 3 times and was unsuccessful. She is still mildly symptomatic but heart rate is much improved. Blood work is otherwise reassuring no leukocytosis or anemia, electrolytes within normal limits no ache no elevated liver enzymes troponin lipase DrChiquis Person you consulted in regards to ongoing atrial fibrillation. Agrees with increasing the metoprolol and outpatient. Patient reports that she is taking 5 mg of metoprolol once a day. Her blood pressure remains stable will increase to 12.5 twice daily. She is given 25 mg p.o. in the ED along with 5 mg Lopressor IV. Rate is controlled in the 100s. She is overall feeling better. Discharge Plan Departure Patient Disposition: Home Clinical Impression: Atrial fibrillation Instructions: DI for Atrial Fibrillation Activity Restrictions/Additional Instructions: *You have been diagnosed with atrial fibrillation *What to do: At this time we attempted to cardiovert you or unsuccessful. You remain in atrial fibrillation. This is okay. We just need to keep your heart rate under control. I discussed with Cardiology recommended increasing your medication *Continue to take medications as directed Metoprolol 12.5 mg twice a day, skip this mornings dose *Follow up with your primary care provider in 2-3 days or call [phone] Follow-up with cardiology, call Dr. Griffin's office tomorrow *Return to ER if you should have increased heart rate dizziness palpitations [or] any new, worsening or concerning symptoms Prescriptions: No Action atorvastatin [Lipitor] 10 mg Tablet 10 mg PO DAILY levothyroxine 25 mcg Tablet 25 mcg PO DAILY lisinopril 10 mg Tablet 10 mg PO DAILY Referrals: Gloria Pina MD [Primary Care Provider] - Stand Alone Forms: Patient Portal/API
[2022-08-06] MEDS: METOPROLOL TARTRATE 5 MG/5 ML INJ IV (23:38)
[2022-08-06] MEDS: propofoL 200 MG/20 ML VIAL 60 MG IV (23:59)
[2022-08-07 00:14] VITALS: BP 113/70; PULSE 84; RESP 24; O2SAT 87
[2022-08-07 00:16] VITALS: BP 118/70; PULSE 96; RESP 24; O2SAT 94
[2022-08-07 00:20] VITALS: BP 122/58; PULSE 91; RESP 30; O2SAT 97
[2022-08-07 01:39] VITALS: BP 108/74; PULSE 103
[2022-08-07] MEDS: METOPROLOL ER 25 MG TABLET PO (01:39)
[2022-08-07 01:46] VITALS: BP 108/74; PULSE 103; RESP 20; O2SAT 96
== END 2022-08-07 01:46 | disposition home or self-care (01) ==
PROVIDERS: Emergency Provider Emergency Medicine; PCP Internal Medicine
DX: I48.0 Paroxysmal atrial fibrillation (principal); R07.9 Chest pain, unspecified; Z79.01 Long term (current) use of anticoagulants
CPT/HCPCS: 36415; 71045; 80053; 82550; 83690; 83735; 84484; 85025; 85610; 85730; 92960; 93005; 93010; 96374; 99152; 99285; J2704

== ENCOUNTER 2022-12-25 20:02 | Emergency (ER) | payer MEDICARE, OTHER, SELFPAY ==
[2021-02-18 02:45] VITALS: BMI 24.3
[2022-12-25] VITALS (13 sets, daily range): BP systolic 133–174; BP diastolic 64–77; PULSE 47–63; RESP 17–20; TEMP 36.1; O2SAT 97–99; BMI 24.3
[2022-12-25 21:48] LABS: Add Manual Diff / Slide Review NO; Basophils Absolute Auto 100 /uL (0-100); Basophils Percent Auto 0.8 % (0-2); Eosinophils Absolute Auto 100 /uL (0-450); Hematocrit 40.3 % (36-46); Hemoglobin 13.8 g/dL (12.0-16.0); Lymphocytes Absolute Auto 2100 /uL (1100-4500); Mean Corpuscular HGB Conc 34.2 % (30-36); Mean Corpuscular Hemoglobin 32.4 PG (26-34); Mean Corpuscular Volume 94.7 fL (80-100); Monocytes Absolute Auto 600 /uL (0-900); Monocytes Percent Auto 8.3 % (3-14); Neutrophils Absolute Auto 4400 /uL (1500-7000); Neutrophils Percent Auto 60.9 % (50-75); Platelet Count 295 X10^3/uL (150-400); Red Blood Cell Count 4.26 X10^6/uL (4.0-5.2); Red Cell Distribution Width 12.8 % (11.6-14.8); White Blood Cell Count 7.2 X10^3/uL (4.5-11.0)
[2022-12-25 21:55] LABS: Alanine Aminotransferase 19 IU/L (<35); Albumin 4.4 g/dL (3.5-5.0); Albumin Globulin Ratio 1.4 (1.0-2.8); Alkaline Phosphatase 53 U/L (38-126); Aspartate Aminotransferase 28 IU/L (14-36); BUN Creatinine Ratio 19.5 (6-22); Bilirubin Total 0.9 mg/dL (0.2-1.3); Blood Urea Nitrogen 23 mg/dL (7-17); Calcium 9.1 mg/dL (8.4-10.2); Carbon Dioxide 25 mmol/L (22-32); Chloride 105 mmol/L (98-107); Estimated Glomerular Filt Rate 48 mL/min (>60); Globulin 3.2 g/dL (1.7-4.1); Glucose 106 mg/dL (80-110); HEMOLYSIS < 15 (0-50); Lipase 124 U/L (23-300); Potassium 3.9 mmol/L (3.4-5.1); Sodium 139 mmol/L (137-145); Total Protein 7.6 g/dL (6.3-8.2)
[2022-12-25] MEDS: SODIUM CHLORIDE 0.9% 1,000 ML 1000 ML IV (21:59)
[2022-12-25] MEDS: MECLIZINE HCL 12.5 MG TABLET 25 MG PO (22:01)
--- NOTE | 2022-12-25 22:31 | ED.GENADULT ---
HPI - General Adult General Chief complaint: Dizziness Stated complaint: faint, bp drops when stands up Time Seen by Provider: 12/25/22 21:32 Source: patient Mode of arrival: Ambulatory Limitations: no limitations History of Present Illness HPI narrative: 77-year-old female who is here for evaluation of approximately 2-1/2 weeks of what she describes lightheadedness and decrease in blood pressure when she stands up. She denies chest pain or shortness of breath. She states she does not have any symptoms when she is either sitting or lying down. It occurs that every time she stands up. It does not ?fatigue? she states that it is consistent the entire time she is standing. She does have a history of atrial fibrillation. She is on metoprolol. She takes this twice a day. She is been on this dose for the past couple months. She is still able to do her activities of daily living despite the lightheadedness. Related Data Home Medications Medication Instructions Recorded Confirmed atorvastatin 10 mg tablet (Lipitor) 10 mg PO DAILY 02/18/21 04/23/21 levothyroxine 25 mcg tablet 25 mcg PO DAILY 02/18/21 04/23/21 lisinopril 10 mg tablet 10 mg PO DAILY 02/18/21 04/23/21 Allergies Allergy/AdvReac Type Severity Reaction Status Date / Time No Known Drug Allergies Allergy Verified 08/06/22 20:30 Review of Systems Constitutional Constitutional: Reports system reviewed and no additional complaints, except as documented Cardiovascular Cardiovascular: Reports system reviewed and no additional complaints, except as documented Respiratory Respiratory: Reports system reviewed and no additional complaints, except as documented Gastrointestinal Gastrointestinal: Reports system reviewed and no additional complaints, except as documented Neurologic Neurologic: Reports system reviewed and no additional complaints, except as documented Patient History Medical History Essential hypertension History of benign parathyroid tumor Hyperlipidemia Hypothyroidism Insomnia Surgical History History of hysterectomy Family History Mother Stroke Lupus Father Heart attack Social History household members: spouse Smoking Status: Never smoker Smoking Status: Never smoker alcohol intake frequency: holidays/special occasions only Substance Use Type: does not use Exam Initial Vital Signs Initial Vital Signs: Vital Signs Temperature 97.0 F L 12/25/22 20:09 Pulse Rate 50 L 12/25/22 20:09 Respiratory Rate 18 12/25/22 20:09 Blood Pressure 174/74 H 12/25/22 20:09 Pulse Oximetry 99 12/25/22 20:09 Oxygen Delivery Method Room Air 12/25/22 20:09 HENMT Head: normal to inspection and normocephalic Resp Effort & Inspection: normal respiratory effort Auscultation: clear to auscultation bilaterally Cardio Rate: bradycardic Rhythm: regular rhythm GI Inspection: normal to inspection Neuro General: patient alert, patient awake and moves all extremities Speech: speech normal Motor: muscle tone normal throughout Extrem General: normal to inspection and capillary refill normal Course Orders Ordered: ED Orders 12/25/22 21:33 EKG-12 Lead Stat 12/25/22 21:35 Complete Blood Count AUTO DIFF Stat Comprehensive Metabolic Panel Stat Lipase Stat Discontinued Medications Sodium Chloride (Normal Saline 0.9%) 1,000 mls @ 1,000 mls/hr IV BOLUS ONE Stop: 12/25/22 22:31 Last Infusion: 12/25/22 22:59 Dose: 0 mls/hr Documented By: Admin: 12/25/22 21:59 Dose: 1,000 mls/hr Documented By: VALERIA Meclizine HCl (Meclizine Hcl 12.5 Mg Tablet) 25 mg PO NOW ONE Stop: 12/25/22 21:33 Last Admin: 12/25/22 22:01 Dose: 25 mg Documented By: VALERIA Vital Signs Vital signs: Vital Signs - 8 hr 12/25/22 20:09 12/25/22 21:15 12/25/22 21:11 Temperature 97.0 F L Pulse Rate 50 L 58 L Pulse Rate [Orthostatic Lying] 49 L Pulse Rate [Orthostatic Sitting] 47 L Pulse Rate [Orthostatic Standing] 52 L Respiratory Rate 18 Blood Pressure 174/74 H Blood Pressure [Orthostatic Lying] 157/77 H Blood Pressure [Orthostatic Sitting] 156/77 H Blood Pressure [Orthostatic Standing] 144/72 H Pulse Oximetry 99 97 Oxygen Delivery Method Room Air 12/25/22 21:12 12/25/22 21:12 12/25/22 21:13 Temperature Pulse Rate 58 L Pulse Rate [Orthostatic Lying] Pulse Rate [Orthostatic Sitting] Pulse Rate [Orthostatic Standing] Respiratory Rate Blood Pressure 157/77 H 156/77 H Blood Pressure [Orthostatic Lying] Blood Pressure [Orthostatic Sitting] Blood Pressure [Orthostatic Standing] Pulse Oximetry 97 Oxygen Delivery Method 12/25/22 21:13 12/25/22 21:14 12/25/22 21:14 Temperature Pulse Rate 47 L 52 L Pulse Rate [Orthostatic Lying] Pulse Rate [Orthostatic Sitting] Pulse Rate [Orthostatic Standing] Respiratory Rate Blood Pressure 144/72 H Blood Pressure [Orthostatic Lying] Blood Pressure [Orthostatic Sitting] Blood Pressure [Orthostatic Standing] Pulse Oximetry 97 97 Oxygen Delivery Method 12/25/22 21:30 12/25/22 21:31 12/25/22 21:31 Temperature Pulse Rate 48 L 47 L Pulse Rate [Orthostatic Lying] Pulse Rate [Orthostatic Sitting] Pulse Rate [Orthostatic Standing] Respiratory Rate Blood Pressure 146/66 H Blood Pressure [Orthostatic Lying] Blood Pressure [Orthostatic Sitting] Blood Pressure [Orthostatic Standing] Pulse Oximetry 98 98 Oxygen Delivery Method 12/25/22 22:00 12/25/22 22:00 12/25/22 22:31 Temperature Pulse Rate 48 L 58 L Pulse Rate [Orthostatic Lying] Pulse Rate [Orthostatic Sitting] Pulse Rate [Orthostatic Standing] Respiratory Rate 18 20 Blood Pressure 154/70 H Blood Pressure [Orthostatic Lying] Blood Pressure [Orthostatic Sitting] Blood Pressure [Orthostatic Standing] Pulse Oximetry 98 98 Oxygen Delivery Method 12/25/22 22:46 12/25/22 22:46 12/25/22 23:00 Temperature Pulse Rate 63 51 L Pulse Rate [Orthostatic Lying] Pulse Rate [Orthostatic Sitting] Pulse Rate [Orthostatic Standing] Respiratory Rate 19 18 Blood Pressure 160/69 H Blood Pressure [Orthostatic Lying] Blood Pressure [Orthostatic Sitting] Blood Pressure [Orthostatic Standing] Pulse Oximetry 98 98 Oxygen Delivery Method 12/25/22 23:01 12/25/22 23:01 Temperature Pulse Rate 52 L Pulse Rate [Orthostatic Lying] Pulse Rate [Orthostatic Sitting] Pulse Rate [Orthostatic Standing] Respiratory Rate 17 Blood Pressure 133/64 Blood Pressure [Orthostatic Lying] Blood Pressure [Orthostatic Sitting] Blood Pressure [Orthostatic Standing] Pulse Oximetry 97 Oxygen Delivery Method Medical Decision Making Lab Data Lab results reviewed: Yes I reviewed the patient's lab results. 12/25/22 21:35 12/25/22 21:35 Labs: Lab Results 12/25/22 12/25/22 Range/Units 21:35 21:35 WBC 7.2 (4.5-11.0) X10^3/uL RBC 4.26 (4.0-5.2) X10^6/uL Hgb 13.8 (12.0-16.0) g/dL Hct 40.3 (36-46) % MCV 94.7 (80-100) fL MCH 32.4 (26-34) PG MCHC 34.2 (30-36) % RDW 12.8 (11.6-14.8) % Plt Count 295 (150-400) X10^3/uL Neut % (Auto) 60.9 (50-75) % Lymph % (Auto) 29.0 (25-40) % [place] % (Auto) 8.3 (3-14) % Eos % (Auto) 1.0 L (2-4) % Baso % (Auto) 0.8 (0-2) % Neut # (Auto) 4400 (3509-6499) /uL Lymph # (Auto) 2100 (9695-5357) /uL [place] # (Auto) 600 (0-900) /uL Eos # (Auto) 100 (0-450) /uL Baso # (Auto) 100 (0-100) /uL Sodium 139 (137-145) mmol/L Potassium 3.9 (3.4-5.1) mmol/L Chloride 105 (98-107) mmol/L Carbon Dioxide 25 (22-32) mmol/L BUN 23 H (7-17) mg/dL Creatinine 1.18 H (0.52-1.04) mg/dL Estimated GFR 48 L (>60) mL/min BUN/Creatinine Ratio 19.5 (6-22) Glucose 106 (80-110) mg/dL Calcium 9.1 (8.4-10.2) mg/dL Total Bilirubin 0.9 (0.2-1.3) mg/dL AST 28 (14-36) IU/L ALT 19 (<35) IU/L Alkaline Phosphatase 53 (38-126) U/L Total Protein 7.6 (6.3-8.2) g/dL Albumin 4.4 (3.5-5.0) g/dL Globulin 3.2 (1.7-4.1) g/dL Albumin/Globulin Ratio 1.4 (1.0-2.8) Lipase 124 (23-300) U/L Urine Dip Bedside Urine Glucose Negative Bedside Urine Bilirubin - Negative Bedside Urine Ketone - Negative Urine Specific [place] 1.005 Bedside Urine Occult Blood - Negative Bedside Urine pH 6.0 Bedside Urine Protein - Negative Bedside Urine Urobilinogen - Negative Bedside Urine Nitrite - Negative Bedside Urine Leukocytes - Negative Esterase Point of care testing: Urine Dip Bedside Urine Glucose Negative Bedside Urine Bilirubin - Negative Bedside Urine Ketone - Negative Urine Specific [place] 1.005 Bedside Urine Occult Blood - Negative Bedside Urine pH 6.0 Bedside Urine Protein - Negative Bedside Urine Urobilinogen - Negative Bedside Urine Nitrite - Negative Bedside Urine Leukocytes - Negative Esterase ECG Data Attestation: I personally reviewed and interpreted this ECG as follows: Interpretation: Sinus bradycardia Ventricular rate of 45 Normal axis Normal QRS No ST T wave changes MDM Narrative Medical decision making narrative: Patient was not orthostatic here in the emergency department. Her blood pressure relatively did not change all that much. She has been bradycardic with a heart rate in the 40s to 60s here in the ER. She was able to stand and walk here in the ER with a walker which is her baseline. She stated that she actually felt okay. This was after receiving some fluids. Low suspicion for CVA/TIA. I do have a high suspicion that potentially for bradycardia maybe causing quite a bit of her symptoms and being on the metoprolol is probably making this somewhat worse. We discussed decreasing her metoprolol and only taking it once a day although she is very reluctant to do this because she is scared that she was going to have another episode of atrial fibrillation. She would rather continue to take her metoprolol twice a day talk with her corrugator operator about this. I advised that she contact your corrugator operator tomorrow for follow-up into discuss this. Patient is safe for home discharge. She was given return precautions. She expressed understanding Discharge Plan Departure Patient Disposition: Home Clinical Impression: Lightheadedness, Bradycardia Instructions: DI for Dizziness-Nonvertigo Activity Restrictions/Additional Instructions: You can consider not taking your evening dose of your metoprolol to see if this improves your symptoms. I do recommend that you contact your primary doctor and also your corrugator operator for follow-up. Return to the emergency department for new or worsening symptoms. Prescriptions: No Action atorvastatin [Lipitor] 10 mg Tablet 10 mg PO DAILY levothyroxine 25 mcg Tablet 25 mcg PO DAILY lisinopril 10 mg Tablet 10 mg PO DAILY Referrals: Gloria Pina MD [Primary Care Provider] - Stand Alone Forms: Patient Portal/API
== END 2022-12-25 23:17 | disposition home or self-care (01) ==
PROVIDERS: Emergency Provider Emergency Medicine; PCP Internal Medicine
DX: R42 Dizziness and giddiness (principal); R00.1 Bradycardia, unspecified
CPT/HCPCS: 80053; 81003; 83690; 85025; 93005; 93010; 99284

== ENCOUNTER → 2023-02-09 11:43 | Outpatient (CLI) | payer MEDICARE, OTHER, SELFPAY ==
[2021-02-18 02:45] VITALS: BMI 24.3
--- NOTE | 2023-02-09 | DI.MG.S_ITS ---
BILATERAL DIGITAL SCREENING MAMMOGRAM 3D/2D WITH CAD: 02/09/2023 CLINICAL: Routine screening. Comparison is made to exams dated: 12/16/2021 mammogram, 08/02/2020 mammogram, and 12/03/2018 mammogram - [facility]. Both breasts are heterogeneously dense, which may obscure small masses (category c / 51-75% glandular tissue). Current study was also evaluated with a Computer Aided Detection (CAD) system. No significant masses, calcifications, or other findings are seen in either breast. There has been no significant interval change. IMPRESSION: NEGATIVE There is no mammographic evidence of malignancy. A 1 year screening mammogram is recommended. Based on the Tyrer Cuzick model (a risk assessment model) the patient's lifetime risk is 3.0% and her 10 year risk is 0.0%. According to the ACR, ACS, and NCCN guidelines, an annual breast MRI exam along with mammogram is recommended if the patient's lifetime risk is 20% or greater. This exam was interpreted at Station ID: [id number]. NOTE: For mammograms, a report in lay terms will be sent to the patient. Approximately 15% of breast malignancies will not be visualized mammographically. In the management of a palpable breast mass, a negative mammogram must not discourage biopsy of a clinically suspicious lesion. Electronically Signed By: Wilfrido hart/minerva:02/10/2023 16:18:47 letter sent: Normal Exam ACR BI-RADS Category 1: Negative 3341F
== END ==
PROVIDERS: PCP Internal Medicine; Referring Provider Internal Medicine; Visit Provider Internal Medicine
DX: Z12.31 Encounter for screening mammogram for malignant neoplasm of breast (principal)
CPT/HCPCS: 77063; 77067

== ENCOUNTER → 2023-02-12 10:39 | Outpatient (CLI) | payer MEDICARE, OTHER, SELFPAY ==
[2021-02-18 02:45] VITALS: BMI 24.3
--- NOTE | 2023-02-12 | DI.RAD.S_ITS ---
Bone Density Report Name: JOANNE SOARES Age: 77 Sex: Female Ethnicity: White Date of : 1945 Indication: osteopenia; Referring Provider: JONNY MLCAUGHLIN Study: Bone densitometry was performed. Exam Date: February 12, 2023 Accession number: [id number] Bone Density: Region BMD T-score Z-score Classification AP Spine(L1-L4) 0.825 -2.0 0.5 Osteopenia Femoral Neck (Left) 0.576 -2.5 -0.3 Osteoporosis Total Hip (Left) 0.626 -2.6 -0.7 Osteoporosis Femoral Neck (Right) 0.581 -2.4 -0.2 Osteopenia Total Hip (Right) 0.604 -2.8 -0.8 Osteoporosis Total Hip Mean 0.615 -2.7 -0.8 Osteoporosis World Health Organization criteria for BMD impression classify patients as: Normal (T-score at or above -1.0), Osteopenia (T-score between -1.0 and -2.5), or Osteoporosis (T-score at or below -2.5). 10-year Fracture Risk: FRAX not reported because: Some T-score for Spine Total or Hip Total or Femoral Neck at or below -2.5 Previous Exams: -- Region Exam Age BMD T-score BMD Change BMD Change Date g/cm2 vs Baseline vs Previous -- AP Spine (L1-L4) 02/12/2023 77 0.825 -2.0 -0.032 (-3.7%)# -0.067 (-7.5%)# 10/24/2016 71 0.892 -1.4 0.035 (4.1%)* 0.035 (4.1%)* 09/27/2013 68 0.857 -1.7 Total Hip(Left) 02/12/2023 77 0.626 -2.6 -0.046 (-6.8%)# -0.018 (-2.8%)# 10/24/2016 71 0.644 -2.4 -0.028 (-4.2%)* -0.028 (-4.2%)* 09/27/2013 68 0.672 -2.2 Total Hip(Right) 02/12/2023 77 0.604 -2.8 -0.053 (-8.0%)# -0.050 (-7.7%)# 10/24/2016 71 0.654 -2.4 -0.002 (-0.4%) -0.002 (-0.4%) 09/27/2013 68 0.656 -2.3 -- *Denotes significance at 95% confidence level, LSC for AP Spine = 0.022 g/cm2, LSC for Total Hip = 0.027 g/cm2 # Denotes dissimilar scan types or analysis methods Impression: The patient has osteoporosis, based on the Right Total Hip T-score. No significant bone loss was observed. Discussion: INCREASED RISK OF FRACTURE. BONE DENSITY IS UNDESIRABLY LOW AT ONE OR MORE SKELETAL SITES, CONSISTENT WITH POSTMENOPAUSAL OSTEOPOROSIS. This patient's lowest T-score meets the World Health Organization's (WHO) criteria for osteoporosis at one or more sites (T-score -2.5 or below). In untreated patients, the risk of osteoporotic fracture increases approximately two-fold for each 1.0 SD decrease in T-score. Low bone density is not the only risk factor for fracture; also consider factors such as patient's age, frailty or poor health, risk of falling, risk of injury, previous osteoporotic fracture, family history of osteoporosis, cigarette smoking, low body weight, etc. Not everyone with low bone mineral density has osteoporosis; osteomalacia and other metabolic bone disorders should also be considered. Patients who have osteoporosis should be evaluated for specific diseases and conditions (secondary causes) that may cause or contribute to bone loss. The [place] [employer]ocrinologists (AACE) and National Osteoporosis Foundation (NOF) recommend pharmacologic intervention for all postmenopausal women whose T-score is in this range. The patient should follow a healthful lifestyle (good nutrition with adequate calcium and vitamin D, and appropriate weight-bearing exercise). Follow-Up: Consider a repeat BMD and Vertebral Fracture Assessment (VFA) exam in 2 years or sooner if medically necessary, to reassess this patient's status. Reported by: MARIANA DIAZ M.D. on 02/12/2023 11:13:00 AM.
== END ==
PROVIDERS: PCP Internal Medicine; Referring Provider Internal Medicine; Visit Provider Internal Medicine
DX: M81.0 Age-related osteoporosis without current pathological fracture (principal)
CPT/HCPCS: 77080

== ENCOUNTER → 2023-04-22 08:11 | Outpatient (CLI) | payer MEDICARE, OTHER, SELFPAY ==
[2021-02-18 02:45] VITALS: BMI 24.3
--- NOTE | 2023-04-22 08:14 | DI.ECHO.S_ITS ---
[facility]---------+ [facility] +---------+ : : [address] : [address] : : : : [id number] : : : : Phone: [phone] +---------+ Echocardiogram Report + + :Name: JOANNE SOARES Study Date: 04/22/2023 Height: 61 in : :[facility] ReadingLocation: Weight: 127 lb : : Gender: Female BSA: 1.6 m2 : :: 1945 Age: 77 yrs BP: 156/78 mmHg: :Reason For Study: Atrial fibrillation : :Ordering Physician: Paola Leonardo : :Gladys Performed By: Carly Butler : :Referring: PAOLA GRAHAM : + + Interpretation Summary 1) Normal left ventricular thickness, size, wall motion, and systolic function (EF 55-60%). 2) Normal right ventricular size and function. 3) There is moderate aortic regurgitation. 4) There is mild luminal irregularity and echogenicity in the abdominal aorta, suggestive of aortic atherosclerotic disease. 5) Compared to the Echo done 03/20/2022, no significant change. Procedure: A two-dimensional transthoracic echocardiogram with color flow and Doppler was performed. The study quality was technically adequate. There is no prior echocardiogram noted for this patient. The patient was in sinus bradycardia with heart rates between 47-56 bpm during the exam. Left Ventricle: The left ventricle is normal in size and wall thickness. The ejection fraction is estimated to be 60-65%. Right Ventricle: The right ventricle is normal in size and function. Atria: The left atrium is mildly dilated. The right atrium is mildly dilated. Doppler interrogation and injection of saline echo contrast shows no evidence for an interatrial shunt. Mitral Valve: The mitral valve is normal in structure and function. There is mild mitral regurgitation. Aortic Valve: The aortic valve is trileaflet. The aortic valve opens well. There is no aortic valve stenosis. There is moderate aortic regurgitation. Tricuspid Valve: The tricuspid valve leaflets are thin and pliable. There is mild tricuspid regurgitation. The right ventricular systolic pressure is estimated to be at least 27 mmHg based on an estimated right atrial pressure of 3 mm Hg. Pulmonic Valve: The pulmonic valve leaflets are thin and pliable; valve motion is normal. There is trace pulmonic regurgitation. Great Vessels: The aortic root is normal size. The ascending aorta is at the upper limits of normal in size. There is mild luminal irregularity and echogenicity in the abdominal aorta, suggestive of aortic atherosclerotic disease. The IVC is of normal diameter and collapses greater than 50% with a sniff. This suggests a low right atrial pressure of 3 mm Hg. Pericardium/ Pleura There is no pericardial effusion. There is no pleural effusion. MMode/2D Measurements & Calculations LVIDd: 5.0 cm LVOT diam: 2.0 cm LVIDs: 3.5 cm Ao root diam: 3.0 cm FS: 28.9 % asc Aorta Diam: 4.0 cm EPSS: 0.49 cm Ao Arch Diam (Prox Trans): 2.3 cm IVSd: 0.62 cm LVPWd: 0.87 cm LV fraser. diameter/BSA (cm/m^2): 3.2 LV sys. diameter/BSA (cm/m^2): 2.3 LA dimension: 4.0 cm RA long axis: 5.1 cm LA A4 area: 17.6 cm2 RA area: 19.8 cm2 LA length (vol): 5.0 cm RA vol: 64.9 ml RA : 41.7 ml/m2 IVC diam: 1.6 cm RVD1 (basal): 3.8 cm RVD2 (mid): 2.6 cm TAPSE: 2.7 cm Doppler Measurements & Calculations Ao V2 max: 174.5 cm/sec LVOT Max Selwyn: 139.7 cm/sec Ao V2 mean: 116.4 cm/sec LV V1 max P.8 mmHg Ao max P.2 mmHg LV V1 VTI: 34.4 cm Ao mean P.2 mmHg KEENA(I,D): 2.3 cm2 Ao V2 VTI: 43.9 cm KEENA(V,D): 2.4 cm2 sev ratio: 0.78 KEENA indexed to BSA (cm^2/m^2): 1.5 AI P1/2t: 725.5 msec AI dec slope: 187.6 cm/sec2 MV E max selwyn: 91.6 cm/sec TR max selwyn: 245.5 cm/sec MV A max selwyn: 59.1 cm/sec TR max P.4 mmHg MV E/A: 1.5 PA V2 max: 75.2 cm/sec Med Peak E' Selwyn: 5.1 cm/sec PA V2 mean: 54.6 cm/sec E/E' med: 17.9 PA mean P.3 mmHg Lat Peak E' Selwyn: 8.9 cm/sec PA pr(Accel): 25.9 mmHg E/E' lat: 10.3 E/e' average: 14.1 MV dec time: 0.17 sec SV(OT): 102.9 ml Reading Physician:05:07 PM
== END ==
PROVIDERS: PCP Internal Medicine; Referring Provider Internal Medicine Cardiovascular Disease; Visit Provider Internal Medicine Cardiovascular Disease
DX: I48.0 Paroxysmal atrial fibrillation (principal); I08.3 Combined rheumatic disorders of mitral, aortic and tricuspid valves
CPT/HCPCS: 93306

== ENCOUNTER → 2023-08-04 10:42 | Outpatient (CLI) | payer MEDICARE, OTHER, SELFPAY ==
[2021-02-18 02:45] VITALS: BMI 24.3
== END ==
PROVIDERS: PCP Internal Medicine; Visit Provider Physician Assistant Surgical
DX: R39.9 Unspecified symptoms and signs involving the genitourinary system (principal)
CPT/HCPCS: 87077; 87086; 87186

== ENCOUNTER → 2024-03-21 10:54 | Outpatient (CLI) | payer MEDICARE, OTHER, SELFPAY ==
[2024-03-15 09:27] VITALS: BMI 24.3
--- NOTE | 2024-03-21 10:55 | DI.MG.S_ITS ---
BILATERAL DIGITAL SCREENING MAMMOGRAM 3D/2D WITH CAD: 03/21/2024 CLINICAL: Routine screening. Comparison is made to exams dated: 02/09/2023 mammogram, 12/16/2021 mammogram, and 08/02/2020 mammogram - [facility]. The breasts are heterogeneously dense, which may obscure small masses (category c / 51-75% glandular tissue). Current study was also evaluated with a Computer Aided Detection (CAD) system. No significant masses, calcifications, or other findings are seen in either breast. There has been no significant interval change. IMPRESSION: NEGATIVE There is no mammographic evidence of malignancy. A 1 year screening mammogram is recommended. Based on the Tyrer Cuzick model (a risk assessment model) the patient's lifetime risk is 2.7% and her 10 year risk is 0.0%. According to the ACR, ACS, and NCCN guidelines, an annual breast MRI exam along with mammogram is recommended if the patient's lifetime risk is 20% or greater. This exam was interpreted at Station ID: [id number]. NOTE: For mammograms, a report in lay terms will be sent to the patient. Approximately 15% of breast malignancies will not be visualized mammographically. In the management of a palpable breast mass, a negative mammogram must not discourage biopsy of a clinically suspicious lesion. Electronically Signed By: Marjorie Jesus M.D., Ph.D. osmany/minerva:03/25/2024 10:22:53 letter sent: Normal Exam ACR BI-RADS Category 1: Negative
== END ==
PROVIDERS: PCP Internal Medicine; Referring Provider Internal Medicine; Visit Provider Internal Medicine
DX: Z12.31 Encounter for screening mammogram for malignant neoplasm of breast (principal); R92.333 Mammographic heterogeneous density, bilateral breasts
CPT/HCPCS: 77063; 77067